=== PATIENT | female | born 1975 | race Caucasian/White ===

== ENCOUNTER 2017-06-21 18:35 | Observation (INO) ==
[2017-06-21 18:57] LABS: Basophils % 0.4 % (0.1-2.0); Eosinophils # 0.3 K/mm3 (0.0-0.4); Eosinophils % 2.7 % (0.1-12.0); Hematocrit 43.2 % (37.0-47.0); Hemoglobin 13.6 g/dL (12.2-16.2); Lymphocytes # 3.5 K/mm3 (0.7-4.5); Lymphocytes % 37.1 K/mm3 (10-50); Mean Corpuscular HGB Conc 31.5 g/dL (31.8-35.4); Mean Corpuscular Hemoglobin 29.1 pg (27.0-31.2); Mean Corpuscular Volume 92.5 fl (81-99); Mean Platelet Volume 8.1 fl (7.4-10.4); Monocytes # 0.3 K/mm3 (0.1-1.0); Monocytes % 3.6 % (1.7-9.3); Neutrophils # 5.2 K/mm3 (1.8-7.8); Neutrophils % 56.2 % (37.0-80.0); Platelet Count 348 K/mm3 (142-424); Red Blood Count 4.67 M/mm3 (4.20-5.40); Red Cell Distribution Width 13.3 % (11.5-17.5); White Blood Count 9.3 K/mm3 (4.8-10.8)
[2017-06-21 19:26] LABS: Alanine Aminotransferase 16 U/L (12-78); Albumin Level 3.2 gm/dL (3.4-5.0); Albumin/Globulin Ratio 0.8 (1.1-1.8); Alkaline Phosphatase 74 U/L (46-116); Anion Gap 13.7 mEq/L (5-15); Aspartate Amino Transferase 16 U/L (15-37); Bilirubin,Total 0.1 mg/dL (0.2-1.0); Blood Urea Nitrogen 11 mg/dL (7-18); Calcium 8.5 mg/dL (8.5-10.1); Carbon Dioxide 26 mmol/L (21.0-32.0); Chloride 107 mmol/L (98-107); Creatine Kinase 67 U/L (26-192); Globulin 4.1 gm/dl (1.3-3.2); Glucose 87 mg/dL (74-106); Potassium 3.7 mmoL/L (3.5-5.1); Sodium 143 mmol/L (136-145); Total Protein,Serum 7.3 gm/dL (6.4-8.2)
--- NOTE | 2017-06-21 20:20 | Emergency Department Note ---
ED Disposition Clinical Impression: Chest pain Qualifiers: Chest pain type: precordial pain Qualified Code(s): R07.2 - Precordial pain Disposition: Admitted as Observation Condition on Discharge: Good Referrals: Dung Huntley MD [Primary Care Provider] - - Critical Care Critical Care Time: No Attestation: On 06/21/17, the high probability of a clinically significant, sudden or life threatening deterioration of the following system(s) required my full and direct attention, intervention and personal management. The time I documented below is in addition to time spent performing reported procedures but includes the following listed in this critical care notation. Medical Decision Making - Medical Records Medical records reviewed: Yes: I reviewed the patient's medical records. - Alcieds Inquiry Pt receiving controlled substance: No Vital Signs: 06/21/17 18:36 06/21/17 20:55 Temperature 98.8 F Temperature Source Oral Pulse Rate [Right Radial] 87 65 Respiratory Rate 20 14 Blood Pressure [Right Arm] 159/89 129/106 Blood Pressure Mean [Right Arm] 112 113 Blood Pressure Source [Right Arm] Automatic Cuff Automatic Cuff Blood Pressure Position [Right Arm] Supine Sitting 02 Sat by Pulse Oximetry 100 100 Oxygen Delivery Method Room Air Room Air - Lab Data Lab results reviewed: Yes: I reviewed the patient's lab results. Lab Results 06/21/17 18:49: WBC 9.3, RBC 4.67, Hgb 13.6, Hct 43.2, MCV 92.5, MCH 29.1, MCHC 31.5 L, RDW 13.3, Plt Count 348, MPV 8.1, Neut % (Auto) 56.2, Lymph % (Auto) 37.1, [place] % (Auto) 3.6, Eos % (Auto) 2.7, Baso % (Auto) 0.4, Neut # (Auto) 5.2 , Lymph # (Auto) 3.5, [place] # (Auto) 0.3, Eos # (Auto) 0.3, Baso # (Auto) 0.0 06/21/17 18:49: Sodium 143, Potassium 3.7, Chloride 107, Carbon Dioxide 26, Anion Gap 13.7, BUN 11, Creatinine 0.63, Estimated Creat Clear 212, Estimated GFR 105, Est GFR ( Amer) 127, Glucose 87, Calcium 8.5, Total Bilirubin 0.1 L, AST 16, ALT 16, Alkaline Phosphatase 74, Total Creatine Kinase 67, CK-MB (CK-2) < 0.5, CK-MB (CK-2) Rel Index 0.7, Troponin I < 0.02, Total Protein 7.3, Albumin 3.2 L, Globulin 4.1 H, Albumin/Globulin Ratio 0.8 L 06/21/17 18:49: D-Dimer 323 06/21/17 18:49: Triglycerides 195, Cholesterol 191, LDL Cholesterol 112, VLDL Cholesterol 39, HDL Cholesterol 40, Cholesterol/HDL Ratio 4.8 H Result diagrams: 06/21/17 18:49 06/21/17 18:49 Orders (Tests/Meds): ED MEDICATIONS Discontinued Medications Generic Name Dose Route Start Last Admin Trade Name Freq PRN Reason Stop Dose Admin Aspirin 324 mg 06/21/17 18:46 06/21/17 18:48 Aspirin 81mg Chewable Tablet PO 06/21/17 18:47 324 mg ONCE ONE Administration Nitroglycerin 1 gm 06/21/17 20:22 06/21/17 20:53 Nitroglycerin 1 Inch Oint Udp TD 06/21/17 20:23 1 gm ONCE ONE Administration ORDERS Category Date Time Status XR chest 2V Stat Exams 06/21/17 18:44 Taken 12-lead EKG Request [ECG Request by /Dayne] Stat Y 06/21/17 18:45 Ordered - Radiology Data #1 Image(s): Clavicle Image Reviewed: Yes I reviewed the patient's radiology image Preliminary Findings: Normal/NAD - ECG Data Tracing #1 I reviewed this ECG and interpreted as documented below: Normal Sinus Rhythm: Yes Ischemic changes: non-specific ST-T wave changes Chest Pain HPI - General Chief Complaint: Chest Pain Stated Complaint: chest pain Time Seen by Provider: 06/21/17 20:00 Mode of Arrival: Ambulatory Limitations: No Limitations Description of Symptoms (Recalled from ER Triage Doc. by RN): Pt reports chest pain since 1700. States she had mild arm pain once at work today that went away. reports she was driving home from work today and developed chest pressure/ tightening. reports nausea. - History of Present Illness HPI narrative: new onset of ant chest pain with rad to lt upper ext over the day - no known ht disease MD complaint: chest pain indicative of cardiac Onset (ago): hour(s) Duration: now resolved Activity at onset: during rest Pain location: substernal Severity: moderate Quality: heaviness Pain radiation: LUE Relieving factors: nothing Associated symptoms: dyspnea Risk Factors for CAD: Family Hx of CAD, Smoking Treatments prior to or on arrival for Cardiac Chest Pain: none - ANASTASIA Score Non-Stemi Age of patient: Less than 65 yrs Number of risk factors for CAD: Presence of 3 or more Prior coronary artery stenosis(seen in coronary angiography): Less than 50% ST-Segment deviation on ECG (more than 1 min): Absent Prior aspirin intake: No ASA in the last 7 days Severe anginal chest pain: Two or more episodes in last 24 hours Elevated cardiac markers(CK-MB or troponin): Absent Non-Stemi Risk Score: 2 - Related Data Home Medications Medication Instructions Recorded Confirmed Buspirone HCl [Buspar 10mg tablet] 10 mg PO DAILY 06/21/17 06/21/17 Citalopram Hydrobromide [Celexa 40 mg PO DAILY 06/21/17 06/21/17 40mg Tablet] Allergies Allergy/AdvReac Type Severity Reaction Status Date / Time penicillin G [PENICILLIN G] Allergy Mild Verified 06/21/17 18:44 [facility] History I have reviewed the patient's past medical history: Yes Medical History: Denies:: Cancer, Diabetes Mellitus Type 1, Diabetes Mellitus Type 2, MRSA Other Surgeries: Yes: , Other (gall bladder, gastric bypass, uterine ablation) Amputation: No Fractures: No - Social History Smoking Status: Current every day smoker Tobacco Type: cigarettes # Packs/Day (cigarettes): 1 Alcohol Intake: never - Psychiatric History Expresses thoughts of harming self/others: None Suicide Plan Description: No Plan ROS Obtained: Yes All systems reviewed & no additional complaints - Constitutional Constitutional: Denies fever(s) - Eyes Eyes: Denies change in vision - ENT Ears, Nose, Mouth, and Throat: Denies sore throat - Cardiovascular Cardiovascular: Reports chest pain, Reports dyspnea - Respiratory Respiratory: No cough - Gastrointestinal Gastrointestingal: Denies: abdominal pain - Genitourinary Female Genitourinary: Denies flank pain, Denies hematuria - Musculoskeletal Musculoskeletal: Denies joint pain - Integumentary/Breasts Skin/Breast: Denies rash - Neurologic Neurologic: Denies seizure-like activity Physical Exam - General General appearance: in no apparent distress - Head Head exam: normocephalic - Eye Eye exam: Present: PERRL, EOMI - ENT ENT exam: Present: mucous membranes dry - Neck Neck exam: Present: trachea midline - Respiratory Respiratory exam: Present: normal lung sounds bilaterally. Absent: respiratory distress - Cardiovascular Cardiovascular exam: Present: regular rate, systolic murmur. Absent: gallop - Abdominal Exam Abdominal exam: Present: soft - Neurological Exam Neurological exam: Present: alert, oriented X3, CN II-XII intact - Skin Skin exam: Absent: rash
[2017-06-21 20:36] LABS: Chol/HDL Ratio 4.8 (1-3.5)
[2017-06-22 06:56] LABS: Anion Gap 10.1 mEq/L (5-15); Potassium 4.1 mmoL/L (3.5-5.1)
[2017-06-22 07:14] LABS: Basophils % 0.4 % (0.1-2.0); Eosinophils # 0.2 K/mm3 (0.0-0.4); Eosinophils % 2.3 % (0.1-12.0); Lymphocytes # 2.8 K/mm3 (0.7-4.5); Lymphocytes % 42.1 K/mm3 (10-50); Mean Corpuscular HGB Conc 31.5 g/dL (31.8-35.4); Mean Corpuscular Hemoglobin 29.3 pg (27.0-31.2); Mean Corpuscular Volume 93.2 fl (81-99); Mean Platelet Volume 8.1 fl (7.4-10.4); Monocytes # 0.3 K/mm3 (0.1-1.0); Monocytes % 3.8 % (1.7-9.3); Neutrophils # 3.4 K/mm3 (1.8-7.8); Neutrophils % 51.4 % (37.0-80.0); Platelet Count 270 K/mm3 (142-424); Red Blood Count 3.96 M/mm3 (4.20-5.40); Red Cell Distribution Width 13.3 % (11.5-17.5); White Blood Count 6.6 K/mm3 (4.8-10.8)
[2017-06-22 07:27] LABS: Hematocrit 37.4 % (37.0-47.0); Hemoglobin 11.7 g/dL (12.2-16.2)
--- NOTE | 2017-06-22 07:53 | History & Physical Report ---
*Admission Date: 06/21/17 *Chief complaint: Chest pain *History of present illness: 41-year-old white female, with several risk factors for heart disease, including family history of hypertension, significant hyperlipidemia, morbid obesity and heavy cigarette use, who came to the emergency department with pressure-like pain with some sharp elements radiating down her left arm. This was associated with some dyspnea but no diaphoresis. In the emergency department EKG was unremarkable and initial troponin was negative but because of her risk factor she was admitted overnight for observation. This morning she complains of no chest pain but has a headache, that she assumes is from the nitroglycerin patch. [facility] History I have reviewed the patient's past medical history: Yes Medical History: Denies:: Cancer, Diabetes Mellitus Type 1, Diabetes Mellitus Type 2, MRSA Other Surgeries: Yes: , Other (gall bladder, gastric bypass, uterine ablation) Amputation: No Fractures: No - *Social History Educational Level: Completed High School Smoking Status: Current every day smoker Tobacco Type: cigarettes # Packs/Day (cigarettes): 1 Alcohol Intake: never Occupational Status: employed - Psychiatric History Expresses thoughts of harming self/others: None Suicide Plan Description: No Plan Review of Systems - Review of Systems Review of systems:: unable to obtain, other, pertinent systems reviewed and negative unless documented below - *Neurologic Denies seizure-like activity Meds Home Medications Medication Instructions Recorded Confirmed Type Buspirone HCl [Buspar 10mg tablet] 10 mg PO DAILY 06/21/17 06/21/17 History Citalopram Hydrobromide [Celexa 40 mg PO DAILY 06/21/17 06/21/17 History 40mg Tablet] Allergies Allergy/AdvReac Type Severity Reaction Status Date / Time penicillin G [PENICILLIN G] Allergy Mild Verified 06/21/17 18:44 Exam Vital signs and Labs for Last 24 Hours: Temp Pulse Resp BP Pulse Ox 98.4 F 68 18 127/76 95 06/22/17 07:24 06/22/17 07:24 06/22/17 07:24 06/22/17 07:24 06/22/17 07:24 Laboratory Results - last 24 hr 06/22/17 06:25: Troponin I < 0.02 06/22/17 06:25: WBC 6.6 D, RBC 3.96 L, Hgb 11.7 L D, Hct 37.4, MCV 93.2, MCH 29.3, MCHC 31.5 L, RDW 13.3, Plt Count 270, MPV 8.1, Neut % (Auto) 51.4, Lymph % (Auto) 42.1, [place] % (Auto) 3.8, Eos % (Auto) 2.3, Baso % (Auto) 0.4, Neut # ( Auto) 3.4, Lymph # (Auto) 2.8, [place] # (Auto) 0.3, Eos # (Auto) 0.2, Baso # (Auto ) 0.0 06/22/17 06:25: Sodium 146 H, Potassium 4.1, Chloride 112 H, Carbon Dioxide 28, Anion Gap 10.1, BUN 10, Creatinine 0.57, Estimated Creat Clear 113, Estimated GFR 117, Est GFR ( Amer) 142, Glucose 94, Magnesium 1.9 I & O for Last 24 hours: Intake & Output 06/19/17 06/20/17 06/21/17 06/22/17 11:59 11:59 11:59 11:59 Output Total 150 / 150 Balance -150 / -150 Narrative: Patient is alert, oriented, her morbid obesity limits her examination accuracy and complicates all aspects of her care. Heart rate is regular. Abdomen is soft, lungs are well-expanded and clear, she is oriented 3, normal cranial nerves. H&P: Result - Labs Labs: Short CBC 06/22/17 Range/Units 06:25 WBC 6.6 D (4.8-10.8) K/mm3 Hgb 11.7 L D (12.2-16.2) g/dL Hct 37.4 (37.0-47.0) % Plt Count 270 (142-424) K/mm3 BMP 06/22/17 06:25 Sodium 146 H Potassium 4.1 Chloride 112 H Carbon Dioxide 28 BUN 10 Creatinine 0.57 Glucose 94 Cardiac Enzymes 06/22/17 Range/Units 06:25 Troponin I < 0.02 (0.00-0.06) ng/ml Assessment and Plan (1) Tobacco abuse Current visit: Yes Status: Acute Category: Medical Code(s): Z72.0 - Tobacco use (2) BMI greater than 40 Current visit: Yes Status: Acute Category: Medical (3) Chest pain Current visit: Yes Status: Acute Qualifiers: Chest pain type: precordial pain Qualified Code(s): R07.2 - Precordial pain Category: Medical Code(s): R07.9 - Chest pain, unspecified Agree with rule out [place] admission. Enzymes are negative. Cardiology consultation. Patient certainly needs risk stratification. I discussed with her family history. Both of her parents have had heart catheterizations but these were "normal." She herself has never had catheterization or stress testing.
--- NOTE | 2017-06-22 08:16 | Pharmacy Consult Notes ---
[facility] Pharmacy VTE Monitoring - Patient Demographics Admission date: 06/21/17 Report Date: 06/22/17 Time: 08:16 Allergies/Adverse Reactions: Patient Allergies penicillin G [PENICILLIN G] Allergy (Mild, Verified 06/21/17 18:44) Height: 1.63 m Weight: 122.47 kg Patient Problems: Current Active Problems Chest pain (Acute) Tobacco abuse (Acute) BMI greater than 40 (Acute) - VTE Risk Labs: VTE Related Lab Results Hgb 11.7 g/dL (12.2-16.2) L D 06/22/17 06:25 Hct 37.4 % (37.0-47.0) 06/22/17 06:25 Plt Count 270 K/mm3 (142-424) 06/22/17 06:25 BUN 10 mg/dL (7-18) 06/22/17 06:25 Creatinine 0.57 mg/dL (0.55-1.02) 06/22/17 06:25 Estimated Creat Clear 113 mL/min (0-300) 06/22/17 06:25 Was VTE Risk Assessment Performed: No VTE Score: 2 VTE Risk Level: Very Low Risk Clinical Trial Participant: No - Prophylaxis VTE Prophylaxis Ordered?: Yes Types of VTE Prophylaxis: TEDS Knee High
--- NOTE | 2017-06-22 09:56 | Consult Report ---
History of Present Illness Consult date: 06/22/17 Requesting physician: Dung Huntley Consult reason: chest pain Chief complaint: chest pain Additional Medical History:: 1. History of gastric bypass surgery in 2009 with resultant of 150 pound weight loss since then 2. Tobacco use, 1 pack per day for 3 years with history of remote tobacco use as well. History of present illness: 41-year-old white female with history of tobacco use and gastric bypass surgery in 2009 resulting in 150 pound weight loss presented to the emergency department yesterday due to onset of chest discomfort with radiation to the back. Patient also relates left arm discomfort and tingling. Symptoms onset about 5:00 as she was leaving work. She does relate a very stressful day at work and a history of gastric ulcer at the anastomosis site of her previous gastric bypass surgery for which she has been on therapy for a year. Patient states she did get relief of symptoms after nitroglycerin paste was applied in the emergency department. EKG shows no acute ST segment changes. Troponins have returned normal. Preliminary echocardiogram shows normal left ventricular function. Cardiology consulted for evaluation. Patient denies diabetes, hypertension or hyperlipidemia or significant family history of coronary artery disease. [facility] History Medical History: Denies:: Cancer, Diabetes Mellitus Type 1, Diabetes Mellitus Type 2, MRSA Other Surgeries: Yes: , Other (gall bladder, gastric bypass, uterine ablation) Amputation: No Fractures: No - *Social History Educational Level: Completed High School Smoking Status: Current every day smoker Tobacco Type: cigarettes # Packs/Day (cigarettes): 1 Alcohol Intake: never Occupational Status: employed - Psychiatric History Expresses thoughts of harming self/others: None Suicide Plan Description: No Plan Meds Home Medications Medication Instructions Recorded Confirmed Type Buspirone HCl [Buspar 10mg tablet] 10 mg PO BID 06/21/17 06/22/17 History Duloxetine HCl 60 mg PO DAILY 06/22/17 06/22/17 History Allergies Allergy/AdvReac Type Severity Reaction Status Date / Time penicillin G [PENICILLIN G] Allergy Mild Verified 06/21/17 18:44 Review of Systems - *Cardiovascular Reports chest pain - *Respiratory Reports shortness of breath with activity - *Gastrointestinal Denies abdominal pain - *Neurologic Denies seizure-like activity Exam Vital signs and Labs for Last 24 Hours: Temp Pulse Resp BP Pulse Ox 98.4 F 60 18 127/76 95 06/22/17 07:24 06/22/17 08:00 06/22/17 07:24 06/22/17 07:24 06/22/17 07:24 Laboratory Results - last 24 hr 06/22/17 06:25: Troponin I < 0.02 06/22/17 06:25: WBC 6.6 D, RBC 3.96 L, Hgb 11.7 L D, Hct 37.4, MCV 93.2, MCH 29.3, MCHC 31.5 L, RDW 13.3, Plt Count 270, MPV 8.1, Neut % (Auto) 51.4, Lymph % (Auto) 42.1, [place] % (Auto) 3.8, Eos % (Auto) 2.3, Baso % (Auto) 0.4, Neut # ( Auto) 3.4, Lymph # (Auto) 2.8, [place] # (Auto) 0.3, Eos # (Auto) 0.2, Baso # (Auto ) 0.0 06/22/17 06:25: Sodium 146 H, Potassium 4.1, Chloride 112 H, Carbon Dioxide 28, Anion Gap 10.1, BUN 10, Creatinine 0.57, Estimated Creat Clear 113, Estimated GFR 117, Est GFR ( Amer) 142, Glucose 94, Magnesium 1.9 I & O for Last 24 hours: Intake & Output 06/19/17 06/20/17 06/21/17 06/22/17 11:59 11:59 11:59 11:59 Output Total 150 / 150 Balance -150 / -150 Weight 270 lb - *Routine Neck Exam Absent: JVD, carotid bruit - *Routine Respiratory Exam Present: CTA bilaterally - *Routine Cardiovascular Exam Present: RRR. Absent: murmur, gallop - *Routine Extremities Exam Absent: edema - *Routine Neurological Exam Present: alert, oriented X3, moving all extremities Assessment and Plan (1) Chest pain Current visit: Yes Status: Acute Qualifiers: Chest pain type: precordial pain Qualified Code(s): R07.2 - Precordial pain Category: Medical Code(s): R07.9 - Chest pain, unspecified (2) Tobacco abuse Current visit: Yes Status: Acute Category: Medical Code(s): Z72.0 - Tobacco use (3) BMI greater than 40 Current visit: Yes Status: Acute Category: Medical - Assessment and plan all Dx Assessment and Plan for all problems:: 1. Chest pain with normal troponins, no EKG evidence of acute coronary syndrome and normal echocardiogram with ANASTASIA score of 1. Recommend Lexiscan or exercise stress test with Myoview images today. I did offer cardiac catheterization the patient wishes to start with a noninvasive approach at this time. Further recommendations to follow.
--- NOTE | 2017-06-23 12:57 | Discharge Summary ---
General - General Admission date: 06/21/17 Discharge date: 06/23/17 HPI HPI: 41-year-old white female, with several risk factors for heart disease, including family history of hypertension, significant hyperlipidemia, morbid obesity and heavy cigarette use, who came to the emergency department with pressure-like pain with some sharp elements radiating down her left arm. This was associated with some dyspnea but no diaphoresis. In the emergency department EKG was unremarkable and initial troponin was negative but because of her risk factor she was admitted overnight for observation. This morning she complains of no chest pain but has a headache, that she assumes is from the nitroglycerin patch. Hospital Course Hospital Course: Patient was admitted for observation. Serial enzymes were obtained and found to be normal. Myoview GXT revealed reversible ischemia in the area of the apex , EF 63%. Cardiology was consulted and patient agreed to coronary angiogram. Patient had LHC which was unremarkable, report still pending. She feels well with no further chest pain and is ready for discharge home. Discharge home. FU with Erma Serrano APRN in [address] Wasserman in 1-2 weeks. Objective Vital signs: Temp Pulse Resp BP Pulse Ox 97.6 F 73 18 134/74 100 06/23/17 08:57 06/23/17 12:00 06/23/17 12:00 06/23/17 12:00 06/23/17 12:00 Narrative: ALert and oriented x3. Rate and rhythm regular. No murmur. No LE edema. Lung sounds clear and equal. Right radial cath site unremarkable with compression device in place. DS: Diagnosis - Discharge Diagnosis (1) BMI greater than 40 Status: Acute (2) Chest pain Status: Acute (3) Tobacco abuse Status: Acute Discharge Plan - Patient Discharge Instructions ACTIVITY: Continue current activity DIET: low fat, low cholesterol - Follow up Plan Follow up with: Erma Serrano APRN [Nurse Practitioner] - 1 week Unknown provider or service follow up:: FU with Dr. Wasserman in 1-2 weeks Disposition: Home, Self-Long-Term Medications: Home Medications Medication Instructions Recorded Confirmed Type Buspirone HCl [Buspar 10mg tablet] 10 mg PO BID 06/21/17 06/22/17 History Duloxetine HCl 60 mg PO DAILY 06/22/17 06/22/17 History Prescriptions/Medication Reconciliation: Continue Buspirone HCl [Buspar 10mg tablet] 10 mg PO BID Duloxetine HCl 60 mg PO DAILY
[2017-06-23 13:32] VITALS: BP 143/78
--- NOTE | 2017-06-23 16:50 | Cardiology Report ---
PROCEDURE: 2-D M-mode and color Doppler study INDICATIONS FOR THE TEST: Chest pain + COPD Heart Murmur Tobacco Smoking+ Palpitations Fatigue Syncope Edema Hypertension Diabetes Mellitus Rheumatic Fever SOB CHAN Obesity Hyperlipidemia Family History HD Additional History PATIENT INFORMATION HEIGHT:66 WEIGHT:250 GENDER: Female B/P:159/89 2-D/M-MODE INTERPRETATION: 2-D MEASUREMENTS OBSERVED VALUES IN CMS Right Ventricular Dimension (RVDd) 2.2 Interventricular Septum (Thickness)(IVsd) 1.5 Left Ventricular Internal Dimensions(LVIDd) 4.4 Left Ventricular Posterior Wall (Thickness)(LVPWd) 1.1 Aortic Root 3.2 Aortic Cusp Separation 2.3 Left Atrial Dimensions (LAD) 4.1 2D 1. Left atrium is mildly enlarged, left ventricle is normal size, there is mild concentric left ventricular hypertrophy, visually estimated ejection fraction 55% with no obvious regional wall motion abnormality. 2. The right atrium and right ventricle are normal size and contractility. 3. The aortic valve is minimally thickened and fibrosed. 4. The mitral and tricuspid valvular grossly normal. 5. The pulmonic valve is poorly visualized. 6. No significant pericardial effusion noted. DOPPLER INTERROGATION: Doppler interrogation of the aortic, mitral and tricuspid valve reveals presence of mild mitral and tricuspid regurgitation, tricuspid and jet velocity insufficient for calculation of the right ventricular systolic pressure, diastolic parameters are inconclusive. CONCLUSION: 1. Mildly enlarged left atrium, normal left ventricular size, mild concentric left ventricular hypertrophy, visually estimated ejection fraction 55% with no obvious regional wall motion abnormality, diastolic parameters are inconclusive. 2. Mild mitral and tricuspid regurgitation 3. No significant pericardial effusion noted.
== END 2017-06-23 13:53 | disposition home or self-care (01) ==
LOC: 2ND 18:35 → ER 18:35 → 2ND 22:00
PROVIDERS: ADMIT Emergency Medicine; ATTEND Internal Medicine Adolescent Medicine

== ENCOUNTER → 2017-11-21 17:13 | Outpatient (CLI) | payer OTHER, SELFPAY ==
[2017-11-21 17:38] LABS: Basophils # 0.1 K/mm3 (0-0.2); Basophils % 0.6 % (0.1-2.0); Eosinophils # 0.2 K/mm3 (0.0-0.4); Hematocrit 41.3 % (37.0-47.0); Hemoglobin 13.4 g/dL (12.2-16.2); Lymphocytes # 3.2 K/mm3 (0.7-4.5); Lymphocytes % 33.8 K/mm3 (10-50); Mean Corpuscular HGB Conc 32.4 g/dL (31.8-35.4); Mean Corpuscular Volume 89.5 fl (81-99); Mean Platelet Volume 7.8 fl (7.4-10.4); Monocytes # 0.3 K/mm3 (0.1-1.0); Monocytes % 2.8 % (1.7-9.3); Neutrophils # 5.8 K/mm3 (1.8-7.8); Neutrophils % 60.8 % (37.0-80.0); Platelet Count 351 K/mm3 (142-424); Red Blood Count 4.62 M/mm3 (4.20-5.40); Red Cell Distribution Width 15.1 % (11.5-17.5); White Blood Count 9.6 K/mm3 (4.8-10.8)
[2017-11-21 18:34] LABS: Alanine Aminotransferase 24 U/L (12-78); Albumin Level 3.6 gm/dL (3.4-5.0); Alkaline Phosphatase 55 U/L (46-116); Anion Gap 12.2 mEq/L (5-15); Aspartate Amino Transferase 14 U/L (15-37); Bilirubin,Total 0.2 mg/dL (0.2-1.0); Blood Urea Nitrogen 9 mg/dL (7-18); Carbon Dioxide 29 mmol/L (21.0-32.0); Chloride 106 mmol/L (98-107); Creatinine,Serum 0.61 mg/dL (0.55-1.02); Estimated Glomerular Filt Rate 109 ml/min (>60); Ferritin 27 ng/mL (8-388); GFR (African American) 131 ML/MIN (>60); Globulin 3.6 gm/dl (1.3-3.2); Glucose 81 mg/dL (74-106); Potassium 4.2 mmoL/L (3.5-5.1); Sodium 143 mmol/L (136-145); Thyroid Stimulating Hormone 1.29 uIU/ml (0.358-3.740); Total Protein,Serum 7.2 gm/dL (6.4-8.2)
[2017-11-21 18:44] LABS: Hemoglobin A1C 5.5 % (0.0-7.0)
[2017-11-23 12:41] LABS: Vitamin B12 629 pg/mL (232-1245); Vitamin D 25 Hydroxy 23.3 ng/mL (30.0-100.0)
== END ==
LOC: LAB 17:13
PROVIDERS: PCP Internal Medicine Adolescent Medicine; Visit Provider Nurse Practitioner Family
DX: E88.81 Metabolic syndrome and other insulin resistance (principal); R60.9 Edema, unspecified; Z98.84 Bariatric surgery status
CPT/HCPCS: 36415; 80053; 82607; 82652; 82728; 83036; 84443; 85025

== ENCOUNTER → 2018-08-22 09:57 | Outpatient (POV) | payer OTHER, SELFPAY | PROVIDERS: Visit Provider Dermatology | DX: Z00.00 Encounter for general adult medical examination without abnormal findings (principal) ==

== ENCOUNTER → 2018-10-10 07:55 | Outpatient (CLI) | payer OTHER, SELFPAY ==
[2018-10-10 08:38] LABS: Basophils % 0.6 % (0.1-2.0); Eosinophils # 0.1 K/mm3 (0.0-0.4); Hematocrit 38.8 % (37.0-47.0); Hemoglobin 12.2 g/dL (12.2-16.2); Lymphocytes # 2.4 K/mm3 (0.7-4.5); Lymphocytes % 34.6 % (10-50); Mean Corpuscular HGB Conc 31.3 g/dL (31.8-35.4); Mean Corpuscular Hemoglobin 29.5 pg (27.0-31.2); Mean Corpuscular Volume 94.2 fl (81-99); Mean Platelet Volume 8.1 fl (7.4-10.4); Monocytes # 0.2 K/mm3 (0.1-1.0); Monocytes % 3.6 % (1.7-9.3); Neutrophils % 59.2 % (37.0-80.0); Platelet Count 312 K/mm3 (142-424); Red Blood Count 4.12 M/mm3 (4.20-5.40); Red Cell Distribution Width 12.9 % (11.5-17.5); White Blood Count 6.8 K/mm3 (4.8-10.8)
[2018-10-10 08:47] LABS: INR 0.96 (0.9-1.1)
[2018-10-10 09:35] LABS: Alanine Aminotransferase 23 U/L (12-78); Alkaline Phosphatase 58 U/L (46-116); Anion Gap 9.3 mEq/L (5-15); Aspartate Amino Transferase 9 U/L (15-37); Bilirubin,Total 0.4 mg/dL (0.2-1.0); Blood Urea Nitrogen 13 mg/dL (7-18); Calcium 9.1 mg/dL (8.5-10.1); Carbon Dioxide 32 mmol/L (21.0-32.0); Chloride 104 mmol/L (98-107); Estimated Glomerular Filt Rate 92 ml/min (>60); GFR (African American) 112 ML/MIN (>60); Glucose 82 mg/dL (74-106); Potassium 4.3 mmoL/L (3.5-5.1); Sodium 141 mmol/L (136-145)
== END ==
PROVIDERS: Visit Provider Plastic Surgery
DX: Z01.812 Encounter for preprocedural laboratory examination (principal)
CPT/HCPCS: 36415; 80053; 85025; 85610; 85730

== ENCOUNTER → 2019-04-27 08:58 | Outpatient (CLI) | payer OTHER, SELFPAY ==
[2019-04-27 09:27] LABS: Basophils % 0.5 % (0.1-2.0); Eosinophils # 0.1 K/mm3 (0.0-0.4); Eosinophils % 1.4 % (0.1-12.0); Hematocrit 38.1 % (37.0-47.0); Hemoglobin 11.9 g/dL (12.2-16.2); Lymphocytes # 2.2 K/mm3 (0.7-4.5); Lymphocytes % 24.4 % (10-50); Mean Corpuscular HGB Conc 31.3 g/dL (31.8-35.4); Mean Corpuscular Hemoglobin 27.8 pg (27.0-31.2); Mean Corpuscular Volume 88.7 fl (81-99); Mean Platelet Volume 8.3 fl (7.4-10.4); Monocytes # 0.3 K/mm3 (0.1-1.0); Monocytes % 3.5 % (1.7-9.3); Neutrophils # 6.2 K/mm3 (1.8-7.8); Neutrophils % 70.3 % (37.0-80.0); Platelet Count 351 K/mm3 (142-424); Red Cell Distribution Width 14.2 % (11.5-17.5); White Blood Count 8.8 K/mm3 (4.8-10.8)
[2019-04-27 12:22] LABS: Alanine Aminotransferase 20 U/L (9-52); Albumin Level 3.7 g/dL (3.4-5.0); Albumin/Globulin Ratio 1.1 (1.1-1.8); Alkaline Phosphatase 48 U/L (46-116); Anion Gap 11.8 mEq/L (5-15); Aspartate Amino Transferase 10 U/L (15-37); Bilirubin,Total 0.3 mg/dL (0.2-1.0); Blood Urea Nitrogen 14 mg/dL (7-18); Calcium 9.2 mg/dL (8.5-10.1); Carbon Dioxide 29 mmol/L (21.0-32.0); Chloride 107 mmol/L (98-107); Chol/HDL Ratio 2.6 (1-3.5); Cholesterol 161 mg/dL (140-200); Creatinine,Serum 0.79 mg/dL (0.55-1.02); Estimated Glomerular Filt Rate 80 ml/min (>60); Ferritin 6 ng/mL (8-388); GFR (African American) 97 ML/MIN (>60); Globulin 3.3 gm/dl (1.3-3.2); Glucose 81 mg/dL (74-106); HDL Cholesterol 63 mg/dL (29-89); LDL Cholesterol 84 mg/dL (0-130); Potassium 4.8 mmoL/L (3.5-5.1); Sodium 143 mmol/L (137-145); Thyroid Stimulating Hormone 0.86 uIU/ml (0.358-3.740); Triglycerides 68 mg/dL (30-200); VLDL Cholesterol 14 mg/dL (0-40)
[2019-04-28 19:12] LABS: Vitamin B12 736 pg/mL (232-1245); Vitamin D 25 Hydroxy 10.5 ng/mL (30.0-100.0)
== END ==
LOC: LAB 08:59
PROVIDERS: Visit Provider Nurse Practitioner Family
DX: I10 Essential (primary) hypertension (principal); F41.9 Anxiety disorder, unspecified; E55.9 Vitamin D deficiency, unspecified; Z98.84 Bariatric surgery status
CPT/HCPCS: 36415; 80053; 80061; 82607; 82652; 82728; 84443; 85025

== ENCOUNTER → 2019-10-31 10:37 | Outpatient (CLI) | payer OTHER, SELFPAY | PROVIDERS: PCP Internal Medicine Adolescent Medicine; Visit Provider Nurse Practitioner Family | DX: Z03.818 Encounter for observation for suspected exposure to other biological agents ruled out (principal) | CPT/HCPCS: U0003 ==

== ENCOUNTER → 2020-05-23 08:37 | Outpatient (CLI) | payer OTHER, SELFPAY ==
[2020-05-23 09:49] LABS: Basophils # 0.1 K/mm3 (0-0.2); Basophils % 0.8 % (0.1-2.0); Eosinophils # 0.1 K/mm3 (0.0-0.4); Eosinophils % 1.7 % (0.1-12.0); Hematocrit 39.7 % (37.0-47.0); Hemoglobin 12.6 g/dL (12.2-16.2); Lymphocytes # 2.9 K/mm3 (0.7-4.5); Lymphocytes % 34.5 % (10-50); Mean Corpuscular HGB Conc 31.7 g/dL (31.8-35.4); Mean Corpuscular Hemoglobin 27.8 pg (27.0-31.2); Mean Corpuscular Volume 87.7 fl (81-99); Mean Platelet Volume 8.1 fl (7.4-10.4); Monocytes # 0.3 K/mm3 (0.1-1.0); Monocytes % 3.9 % (1.7-9.3); Neutrophils # 4.9 K/mm3 (1.8-7.8); Neutrophils % 59.1 % (37.0-80.0); Platelet Count 414 K/mm3 (142-424); Red Blood Count 4.52 M/mm3 (4.20-5.40); Red Cell Distribution Width 14.8 % (11.5-17.5); White Blood Count 8.3 K/mm3 (4.8-10.8)
[2020-05-23 10:02] LABS: Chloride 104 mmol/L (98-107); Potassium 4.7 mmoL/L (3.5-5.1); Sodium 139 mmol/L (136-145)
[2020-05-23 10:04] LABS: Alanine Aminotransferase 17 U/L (12-78); Albumin Level 4.3 g/dl (3.5-5.0); Albumin/Globulin Ratio 1.3 (1.1-1.8); Alkaline Phosphatase 62 U/L (38-126); Aspartate Amino Transferase 26 U/L (14-36); Bilirubin,Total 0.5 mg/dl (0.2-1.3); Blood Urea Nitrogen 11 mg/dl (7-17); Estimated Glomerular Filt Rate 91 ml/min (>60); GFR (African American) 111 ML/MIN (>60); Globulin 3.2 g/dL (1.3-3.2); Total Protein,Serum 7.5 g/dl (6.3-8.2)
[2020-05-23 10:05] LABS: Anion Gap 11.7 mEq/L (5-15); Carbon Dioxide 28 mmol/L (22.0-30.0); Chol/HDL Ratio 2.8 (1-3.5); Cholesterol 181 mg/dl (140-200); Glucose 90 mg/dl (74-100); HDL Cholesterol 64 mg/dl (40-60); Triglycerides 94 mg/dl (30-150); VLDL Cholesterol 19 mg/dL (0-40)
[2020-05-23 10:24] LABS: 25-OH Vitamin D, Total 14.7 ng/mL (30-100)
[2020-05-23 10:39] LABS: Thyroid Stimulating Hormone 0.76 uIU/mL (0.465-4.68)
[2020-05-23 10:42] LABS: Ferritin 6.59 ng/ml (6.24-137)
[2020-05-23 11:51] LABS: Vitamin B12 805 pg/mL (239-931)
== END ==
PROVIDERS: Visit Provider Nurse Practitioner Family
DX: I10 Essential (primary) hypertension (principal); E55.9 Vitamin D deficiency, unspecified; F41.9 Anxiety disorder, unspecified; F33.0 Major depressive disorder, recurrent, mild; K27.9 Peptic ulcer, site unspecified, unspecified as acute or chronic, without hemorrhage or perforation; Z98.84 Bariatric surgery status
CPT/HCPCS: 36415; 80053; 80061; 82306; 82607; 82728; 84443; 85025

== ENCOUNTER → 2020-10-31 08:14 | Outpatient (CLI) | payer OTHER, SELFPAY ==
[2020-10-31 08:40] LABS: Adenovirus,PCR Not Detected (NotDetected); Bordetella Pertussis Not Detected (NotDetected); Chlamydophila Pneumoniae, PCR Not Detected (NotDetected); Coronavirus 19, PCR Not Detected (NotDetected); Coronavirus 229E Not Detected (NotDetected); Coronavirus NL63 Not Detected (NotDetected); Coronavirus OC43 Not Detected (NotDetected); Coronovirus HKU1,PCR Not Detected (NotDetected); Human Metapneumovirus Not Detected (NotDetected); Influenza A, PCR Not Detected (NotDetected); Influenza AH1, 2009 Not Detected (NotDetected); Influenza AH1, PCR Not Detected (NotDetected); Influenza AH3,PCR Not Detected (NotDetected); Influenza B, PCR Not Detected (NotDetected); Mycoplasma Pneumoniae, PCR Not Detected (NotDetected); Parainfluenza 1, PCR Not Detected (NotDetected); Parainfluenza 2, PCR Not Detected (NotDetected); Parainfluenza 3, PCR Not Detected (NotDetected); Parainfluenza 4, PCR Not Detected (NotDetected); Respiratory Syncytial Virus Not Detected (NotDetected); Rhinovirus/Enterovirus Not Detected (NotDetected)
== END ==
PROVIDERS: PCP Internal Medicine Adolescent Medicine; Referring Provider Nurse Practitioner Family; Visit Provider Internal Medicine Adolescent Medicine
DX: Z20.822 Contact with and (suspected) exposure to COVID-19 (principal)
CPT/HCPCS: 87581; 87633; 87798

== ENCOUNTER → 2020-11-01 11:36 | Outpatient (CLI) | payer OTHER, SELFPAY | PROVIDERS: PCP Internal Medicine Adolescent Medicine; Visit Provider Nurse Practitioner Family | DX: Z20.822 Contact with and (suspected) exposure to COVID-19 (principal) | CPT/HCPCS: U0003 ==

== ENCOUNTER → 2021-02-10 21:32 | Outpatient (CLI) | payer BC, SELFPAY ==
[2021-02-10 21:51] LABS: Influenza A, PCR Not Detected (NotDetected); Influenza B, PCR Not Detected (NotDetected)
[2021-02-10 22:17] LABS: Strep Scrn Group A (Rapid) Negative (Negative)
[2021-02-10 23:07] LABS: Coronavirus 19, PCR Detected (NotDetected)
--- NOTE | 2021-02-11 12:41 | PC.NURSE ---
notified pt of positive covid result at this time
== END ==
PROVIDERS: PCP Internal Medicine Adolescent Medicine; Visit Provider Emergency Medicine
DX: U07.1 COVID-19 (principal); R50.9 Fever, unspecified; R05.9 Cough, unspecified; J02.9 Acute pharyngitis, unspecified
CPT/HCPCS: 87430; C9803; U0003; U0005

== ENCOUNTER → 2021-12-16 15:26 | Outpatient (CLI) | payer BC, SELFPAY ==
--- NOTE | 2021-12-16 15:34 | US_ITS ---
FINAL REPORT CLINICAL HISTORY: IRR CYCLE FINDINGS: Transvaginal sonographic images of the pelvis were obtained. The uterus measures 8.6 x 5.5 x 4.5 cm. The endometrium measures 4 mm, which is within normal limits. No uterine mass is identified. The right ovary measures 2.8 cm in length and left ovary measures 3.1 cm in length. Normal blood flow seen to the ovaries. There is a 2.6 cm simple cyst in the left ovary. There is no evidence of free fluid. IMPRESSION: Left ovarian cyst. Otherwise unremarkable exam. Reviewed, Interpreted and Dictated by Shorty Chaudhry III, MD Transcribed by Erlinda Gee Authenticated and [facility]
== END ==
LOC: RAD 15:26
PROVIDERS: PCP Internal Medicine Adolescent Medicine; Visit Provider Nurse Practitioner Family
DX: N92.0 Excessive and frequent menstruation with regular cycle (principal); N94.10 Unspecified dyspareunia
CPT/HCPCS: 76830

== ENCOUNTER 2022-03-04 11:26 | Day surgery (SDC) | payer BC, SELFPAY ==
[2022-01-25 13:54] VITALS: BMI 38.9
[2022-03-04] VITALS (8 sets, daily range): BP systolic 93–124; BP diastolic 57–63; PULSE 69–82; RESP 16–188; TEMP 36.3–36.7; O2SAT 95–100
[2022-03-04 11:59] LABS: Urine Pregnancy, HCG Qual. Negative (Negative)
--- NOTE | 2022-03-04 12:53 | P.PN_ITS ---
[facility] Disclaimer: The information contained in this section may have been updated after the patient was seen, as this information can be updated by other users. Medical History Edema HLD (hyperlipidemia) Leg cramps Leg pain Surgical History H/O: History of cholecystectomy History of endometrial ablation Hx of gastric bypass Family History Other Family history of COPD (chronic obstructive pulmonary disease) Family history of atrial fibrillation Family history of hypertension Social History Smoking Status: Former smoker alcohol intake: never substance use type: denies use current occupational status: employed Travel in the last 8 weeks: None adopted: No caregiver/support person: No foster care: No household members: family housing: house lives independently: Yes marital status: education level: high school service: No mcc: No current occupational exposures/hazards: No sexually active: Yes caffeine: Yes special sharon needs: No agree to transfusion: No do you feel safe at home: Yes victim of physical abuse: No victim of emotional abuse: No victim of sexual abuse: No would you like helpful sources: No [facility] Anesthesia Checklist Patient Identification Patient Identification: Arm Band Structural Data Admitted From: Home Planned Operative Procedure/s: EGD/Colonoscopy Consent for Planned Operative Procedure(s) Verified: Yes Verified Documents: Surgical Consent and History and Physical NPO Status Verified Time NPO: 00:00 Additional verifications Anesthesia Reactions: No Airway Assessment C-Spine Mobility Assessed: Yes TMJ Mobility Assessed: Yes Dentition: Good Dentition Neurological Assessment Level of Consciousness: Awake and Alert Anesthesia Plan Anesthesia Risk discussed: Yes Anesthesia Plan: Verified ASA Class: II Anesthesia Type: MAC
--- NOTE | 2022-03-04 13:01 | HMH.SCOPE ---
Procedure: Date: 03/04/22 Patient Date of :: 1975 Procedure Performed:: EGD Indications:: History of peptic ulcer disease Performing Provider:: Estefani Gordon MD Referring Provider:: Dung Huntley Sedation:: Propofol Procedure:: The gastroscope was gently passed through the incisoral orifice into the oral cavity and under direct visualization the esophagus was intubated. The endoscope was passed down the esophagus, through the stomach, and into the duodenum. Color, texture, mucosa, and anatomy of the esophagus, stomach, and duodenum were carefully examined with the scope. Findings:: Oropharynx: normal Esophagus: normal EG Junction: intact at 40 cm Cardia: normal Fundus: normal Body: normal, s/p partial gastrectomy anatomy, no evidence of ulcer disease Antrum: resected Duodenal bulb: resected Duodenum (second and third portion): normal Impression: S/P partial gastrectomy anatomy, no current evidence of ulcer disease Specimens:: None Recommendations:: Routine PRN f/u as clinically indicated Complications:: None Estimated blood obtained (mL): 0
--- NOTE | 2022-03-04 13:04 | HMH.SCOPE ---
Procedure: Date: 03/04/22 Patient Date of :: 1975 Procedure Performed:: Screening colonoscopy Indications:: Colon cancer screening, hx of constipation Performing Provider:: Estefani Gordon MD Referring Provider:: Dung Huntley Sedation:: Propofol Procedure:: After placing the patient in the left lateral decubitus position, the colonoscopy was gently inserted into the rectum and under direct visualization advanced to the cecum which was identified by transillumination in the right lower quadrant, identification of the ileocecal valve, appendiceal orifice, and cecal strap. Color, texture, mucosa, and anatomy of the colon were carefully examined with the scope. Findings:: Anal canal: normal Rectum: normal Sigmoid colon: normal without polyps or inflammatory changes Descending colon: normal without polyps or inflammatory changes Splenic flexure: normal Transverse colon: normal without polyps or inflammatory changes Hepatic flexure: normal Ascending colon: normal without polyps or inflammatory changes Cecum: normal Terminal ileum: not visualized Impression: Normal colonoscopy. No evidence of physical obstruction. Specimens:: None Recommendations:: Follow up exam in about TEN years or so, sooner if clinically indicated. Consider GI clinic evaluation for treatment of chronic constipation Complications:: None Estimated blood obtained (mL): 0
== END 2022-03-04 14:08 | disposition home or self-care (01) ==
PROVIDERS: PCP Internal Medicine Adolescent Medicine; Visit Provider Internal Medicine Gastroenterology
PROC: 0DJ08ZZ Inspection of Upper Intestinal Tract, Via Natural or Artificial Opening Endoscopic (ICD-10-PCS; CPT 43235; principal; 2022-03-04 12:30)
DX: Z12.11 Encounter for screening for malignant neoplasm of colon (principal); Z87.11 Personal history of peptic ulcer disease; Z79.899 Other long term (current) drug therapy
CPT/HCPCS: 45378; 43235; 81025

== ENCOUNTER 2022-12-09 10:23 | Emergency (ER) | payer BC, SELFPAY ==
[2022-12-09 10:25] VITALS: BP 117/73; PULSE 88; RESP 16; TEMP 36.7; O2SAT 99; BMI 38.6
--- NOTE | 2022-12-09 10:35 | PC.NURSE ---
Dr. Rios at [facility] for pt eval
--- NOTE | 2022-12-09 10:35 | PC.NURSE ---
Dr. Kumar at [facility] for pt eval
[2022-12-09 10:36] VITALS: PULSE 91; O2SAT 100
--- NOTE | 2022-12-09 10:38 | CT_ITS ---
FINAL REPORT TECHNIQUE: Multiple axial CT sections were performed from the foramen magnum to the vertex. Coronal and sagittal reformatted images were also obtained. Precontrast and postcontrast injection images were obtained. This study was performed with technique to keep radiation doses as low as reasonably achievable, (ALARA). Individualized dose reduction techniques using automated exposure control or adjustment of mA and/or kV according to the patient size were employed. CLINICAL HISTORY: R sided head/mastoid swelling/TTP/pain COMPARISON: None FINDINGS: The ventricles are normal in size. There is no evidence of hemorrhage. No masses are identified. No extra-axial fluid collection is seen. The sinuses are normal. No osseous abnormality is seen on the bone window images. Postcontrast images demonstrate no abnormal intracranial enhancement. There are mildly prominent posterior auricular and superior cervical nodes on the right side. The largest measures 17 mm in size. No associated loculated fluid collection is seen. Mastoid air cells are clear bilaterally. There is subcutaneous edema noted adjacent to the right skull base but no bony involvement is identified. IMPRESSION: Unremarkable intracranial CT of the head with and without contrast. Posterior auricular and superior cervical nodes on the right side measuring up to 17 mm in size, with adjacent subcutaneous edema. The mastoid air cells are clear bilaterally. No associated bony abnormality is identified. Reviewed, Interpreted and Dictated by Roxanne Sanchez MD Transcribed by Serena Iyer Authenticated and [facility]
--- NOTE | 2022-12-09 10:46 | HMH.EDGENADL ---
Discharge Plan Disposition Patient Disposition: Home, Self-Care Condition: Good Prescriptions Prescriptions: New cefdinir 300 mg capsule 300 mg PO BID 14 Days Qty: 28 0RF No Action omeprazole-sodium bicarbonate [Zegerid] 40-1.1 mg-gram capsule 1 cap PO DAILY buspirone 5 mg tablet 10 mg PO BID lisinopril-hydrochlorothiazide 10-12.5 mg tablet 10 tab PO BID bupropion HCl 300 mg tablet extended release 24 hr 300 mg PO DAILY Patient Comments: TAKE 1 TABLET BY MOUTH EVERY 24 HOURS bupropion HCl 150 mg tablet extended release 24 hr 150 mg PO DAILY Patient Comments: TAKE 1 TABLET BY MOUTH EVERY 24 HOURS Referrals Follow up/Referrals: Bryan Hoyt APRN [Primary Care Provider] - See instructions Activity Restrictions/Add. Instructions Additional Instructions/Restrictions: You were evaluated in the emergency department today. Please pickling operator your prescription at the pharmacy and take the full course as prescribed. Follow-up outpatient with your primary care provider over the next 2 to 3 days for reassessment. Return to the emergency department for any new or worsening symptoms. Clinical Impressions Clinical Impression: Acute right otitis media Instructions Patient Instructions: DI for Otitis Media (Middle Ear Infection)-Child, DI for Headache Discharge ED Provider: Sepideh Rios General Adult HPI General Chief complaint: Headache Stated complaint: headache pockets of fluid r side head Time Seen by Provider: 12/09/22 10:35 Mode of Arrival: Ambulatory Source of Information: Patient Limitations: No Limitations Description of Symptoms (Recalled from ER Triage Doc. by RN): Patient reports a headache that started yesterday and then today she began to have swelling behind her right ear and top of the right side of her head. Complaint of some mild dizziness as well. History of Present Illness HPI narrative: This patient is a 46-year-old female with a history of obesity, hyperlipidemia, and hypertension presenting to the emergency department for evaluation with concern for right-sided head and ear pain. She notes that she started feeling like she was having a tension headache yesterday, but it continued and worsened today. She also noted that she feels areas of swelling on the right side of her head behind her right ear. She states it feels like fluid collections. She denies experience anything like this in the past. She denies any recent fevers, sinus infections, vision changes, numbness, tingling, unilateral weakness, or other concerns. Related Data Home Medications Medication Instructions Recorded Confirmed omeprazole 40 mg-sodium 1 cap PO DAILY Reflux/Acid reflux 07/05/17 03/04/22 bicarbonate 1.1 gram capsule (Zegerid) bupropion HCl 150 mg 24 hr tablet, 150 mg PO DAILY Anxiety 03/04/22 03/04/22 extended release bupropion HCl 300 mg 24 hr tablet, 300 mg PO DAILY Anxiety 03/04/22 03/04/22 extended release buspirone 5 mg tablet 10 mg PO BID Anxiety 03/04/22 03/04/22 lisinopril 10 10 tab PO BID HTN 03/04/22 03/04/22 mg-hydrochlorothiazide 12.5 mg tablet Previous Rx's Medication Instructions Recorded cefdinir 300 mg capsule 300 mg PO BID 14 days #28 caps 12/09/22 Allergies Allergy/AdvReac Type Severity Reaction Status Date / Time penicillin G [PENICILLIN G] Allergy Mild Verified 06/21/17 18:44 [facility] Disclaimer: The information contained in this section may have been updated after the patient was seen, as this information can be updated by other users. Medical History Edema HLD (hyperlipidemia) Leg cramps Leg pain Surgical History H/O: History of cholecystectomy History of endometrial ablation Hx of gastric bypass Family History Other Family history
[2022-12-09 11:11] LABS: Alanine Aminotransferase 29 U/L (12-78); Albumin Level 3.9 g/dl (3.5-5.0); Albumin/Globulin Ratio 1.2 (1.1-1.8); Alkaline Phosphatase 45 U/L (38-126); Anion Gap 11.5 mEq/L (5-15); Aspartate Amino Transferase 30 U/L (14-36); Blood Urea Nitrogen 9 mg/dl (7-17); Calcium 8.9 mg/dl (8.4-10.2); Carbon Dioxide 27 mmol/L (22.0-30.0); Chloride 104 mmol/L (98-107); Creatinine Clearance Estimated 164 mL/min (50-200); Estimated Glomerular Filt Rate 90 ml/min (>60); GFR (African American) 109 ML/MIN (>60); Globulin 3.2 g/dL (1.3-3.2); Glucose 82 mg/dl (74-100); Potassium 3.5 mmoL/L (3.5-5.1); Sodium 139 mmol/L (136-145); Total Protein,Serum 7.1 g/dl (6.3-8.2)
[2022-12-09 11:14] LABS: Bilirubin,Total < 0.1 mg/dl (0.2-1.3)
[2022-12-09 11:16] LABS: Basophils % 0.9 % (0.1-2.0); Eosinophils # 0.1 K/mm3 (0.0-0.4); Eosinophils % 1.2 % (0.1-12.0); Hematocrit 35.8 % (37.0-47.0); Hemoglobin 11.1 g/dL (12.2-16.2); Lymphocytes # 1.7 K/mm3 (0.7-4.5); Lymphocytes % 33.1 % (10-50); Mean Corpuscular HGB Conc 30.9 g/dL (31.8-35.4); Mean Platelet Volume 8.4 fl (7.4-10.4); Monocytes # 0.4 K/mm3 (0.1-1.0); Monocytes % 7.3 % (1.7-9.3); Neutrophils # 2.9 K/mm3 (1.8-7.8); Neutrophils % 57.6 % (37.0-80.0); Platelet Count 326 K/mm3 (142-424); Red Blood Count 4.26 M/mm3 (4.20-5.40); Red Cell Distribution Width 16.5 % (11.5-17.5)
--- NOTE | 2022-12-09 11:58 | PC.NURSE ---
PT TO CT
--- NOTE | 2022-12-09 12:01 | PC.NURSE ---
Pt gone to RAD
--- NOTE | 2022-12-09 12:12 | PC.NURSE ---
PT RETURNED FROM CT
[2022-12-09 12:22] LABS: Erythrocyte Sedimentation Rate 41 mm/hr (0-20)
--- NOTE | 2022-12-09 12:39 | PC.NURSE ---
ROUNDED ON PT, UPDATED ON POC. WARM BLANKET PROVIDED. CALL LIGHT WITHIN REACH. NO NEEDS AT THIS TIME
--- NOTE | 2022-12-09 12:57 | PC.NURSE ---
Dr. Rios at BS to update mother on POC
[2022-12-09 13:01] VITALS: BP 103/65; PULSE 67; O2SAT 100
[2022-12-09 13:06] LABS: C-Reactive Protein < 0.2 mg/L (0-4)
[2022-12-09 13:30] VITALS: BP 116/72; PULSE 78; O2SAT 100
--- NOTE | 2022-12-09 13:31 | PC.NURSE ---
Rounded on pt. No needs or complaints voiced at this time.
[2022-12-09 14:10] VITALS: BP 129/60; PULSE 67; RESP 16; TEMP 36.7; O2SAT 100
== END 2022-12-09 14:11 | disposition home or self-care (01) ==
PROVIDERS: Emergency Provider Emergency Medicine; PCP Nurse Practitioner Family
DX: H66.91 Otitis media, unspecified, right ear (principal); R51.9 Headache, unspecified
CPT/HCPCS: 70470; 80053; 85025; 85651; 86140; 96361; 96374; 96375; 99285; J0131; Q9967

== ENCOUNTER 2022-12-11 16:41 | Emergency (ER) | payer BC, SELFPAY ==
[2022-12-11 16:51] VITALS: BP 131/70; PULSE 84; RESP 15; TEMP 36.7; O2SAT 99; BMI 39.4
--- NOTE | 2022-12-11 17:15 | HMH.EDGENADL ---
Discharge Plan Disposition Patient Disposition: Home, Self-Care Prescriptions Prescriptions: New sulfamethoxazole-trimethoprim [Bactrim DS] 800-160 mg tablet 1 tab PO BID 10 Days Qty: 20 0RF No Action omeprazole-sodium bicarbonate [Zegerid] 40-1.1 mg-gram capsule 1 cap PO DAILY buspirone 5 mg tablet 10 mg PO BID lisinopril-hydrochlorothiazide 10-12.5 mg tablet 10 tab PO BID bupropion HCl 300 mg tablet extended release 24 hr 300 mg PO DAILY Patient Comments: TAKE 1 TABLET BY MOUTH EVERY 24 HOURS bupropion HCl 150 mg tablet extended release 24 hr 150 mg PO DAILY Patient Comments: TAKE 1 TABLET BY MOUTH EVERY 24 HOURS cefdinir 300 mg capsule 300 mg PO BID 14 Days Qty: 28 0RF Referrals Follow up/Referrals: Bryan Hoyt APRN [Primary Care Provider] - See instructions Activity Restrictions/Add. Instructions Additional Instructions/Restrictions: Continue cefdinir. Begin taking Bactrim twice daily for 10 days. Do not consume alcohol with Bactrim, will cause vomiting. Call your family doctor to establish care for this visit to the emergency department and schedule follow-up within 48 hours to ensure improvement. If you have any worsening of your condition or any other concerning signs or symptoms, return to the emergency department or your primary care doctor for further evaluation. Clinical Impressions Clinical Impression: Cellulitis of multiple sites of scalp and neck Discharge ED Provider: Vahe Rivers General Adult HPI General Chief complaint: PAIN Stated complaint: Swelling spots in head and neck Time Seen by Provider: 12/11/22 16:46 Mode of Arrival: Ambulatory Source of Information: Patient Limitations: No Limitations Description of Symptoms (Recalled from ER Triage Doc. by RN): 46 yo F presents to ED with c/o right sided swollen bumps on head and neck. pt reports that she was seen here on tuesday and symptoms have continued to worsen. History of Present Illness HPI narrative: 46-year-old female with history of cysts of the head and neck presenting with swelling and pain. Patient states that she has had symptoms like this in the past. Head and neck swelling. Had cyst removed by primary care doctor a few years prior. For about a week, patient had progressively worsening swelling on the posterior aspect of her head. Was seen a couple days prior to arrival, CT without contrast demonstrated swellings without obvious concern for infection. Patient was given cefdinir after being diagnosed with right-sided otitis media and discharged home. Patient states swelling is gotten worse. Denies fevers or chills, but is now having right-sided neck tenderness with turning her neck to the left. Denies difficulty swallowing, difficulty breathing, vomiting, but pain is severe in intensity made worse with pressure and not getting any better. Related Data Home Medications Medication Instructions Recorded Confirmed omeprazole 40 mg-sodium 1 cap PO DAILY Reflux/Acid reflux 07/05/17 03/04/22 bicarbonate 1.1 gram capsule (Zegerid) bupropion HCl 150 mg 24 hr tablet, 150 mg PO DAILY Anxiety 03/04/22 03/04/22 extended release bupropion HCl 300 mg 24 hr tablet, 300 mg PO DAILY Anxiety 03/04/22 03/04/22 extended release buspirone 5 mg tablet 10 mg PO BID Anxiety 03/04/22 03/04/22 lisinopril 10 10 tab PO BID HTN 03/04/22 03/04/22 mg-hydrochlorothiazide 12.5 mg tablet Previous Rx's Medication Instructions Recorded cefdinir 300 mg capsule 300 mg PO BID 14 days #28 caps 12/09/22 sulfamethoxazole 800 1 tab PO BID 10 days #20 tabs 12/11/22 mg-trimethoprim 160 mg tablet (Bactrim DS) Allergies Allergy/AdvReac Type Severity Reaction Status Date / Time penicillin G [PENICILLIN G] Allergy Mild Verified 06/21/17 18:44 [facility] Disclaimer: The information contained in this section may have been updated after the patient was seen, as this informat
--- NOTE | 2022-12-11 17:16 | CT_ITS ---
PROCEDURE INFORMATION: Exam: CT Head With Contrast Exam date and time: 12/11/2022 5:42 PM Age: 46 years old Clinical indication: Other: Scalp swellings & neck pain; Additional info: Scalp swellings and pain TECHNIQUE: Imaging protocol: Computed tomography of the head with intravenous contrast. Radiation optimization: All CT scans at this facility use at least one of these dose optimization techniques: automated exposure control; mA and/or kV adjustment per patient size (includes targeted exams where dose is matched to clinical indication); or iterative reconstruction. Contrast material: ISOVUE; Contrast volume: 50 ml; Contrast route: IV; REPORTING DATA: Count of CT and Cardiac NM exams in prior 12 months: This patient has received [address] and 0 known cardiac nuclear medicine studies in the 12 months prior to the current study. COMPARISON: CT HEAD/BRAIN WO/W CON 12/09/2022 12:06 PM FINDINGS: Brain: Unremarkable white matter. No mass effect. No abnormal enhancing lesions. Empty sella. Cerebral ventricles: Unremarkable. No ventriculomegaly. Bones/joints: Unremarkable. No acute fracture. Paranasal sinuses: Visualized sinuses are unremarkable. No fluid levels. Mastoid air cells: Visualized mastoid air cells are well aerated. Soft tissues: Increased patchy areas of moderate right parietal and occipital scalp subcutaneous soft tissue swelling with extension into the upper posterior neck. No rim enhancing fluid collection. IMPRESSION: 1. No acute intracranial findings. 2. Increased patchy areas of moderate right parietal and occipital scalp subcutaneous soft tissue swelling with extension into the upper posterior neck.
--- NOTE | 2022-12-11 17:16 | CT_ITS ---
PROCEDURE INFORMATION: Exam: CT Neck With Contrast Exam date and time: 12/11/2022 5:39 PM Age: 46 years old Clinical indication: Neck pain; Additional info: Scalp swellings. Right-sided neck swelling/pain TECHNIQUE: Imaging protocol: Computed tomography of the neck with contrast. Radiation optimization: All CT scans at this facility use at least one of these dose optimization techniques: automated exposure control; mA and/or kV adjustment per patient size (includes targeted exams where dose is matched to clinical indication); or iterative reconstruction. Contrast material: ISOVUE; Contrast volume: 50 ml; Contrast route: IV; REPORTING DATA: Count of CT and Cardiac NM exams in prior 12 months: This patient has received [address] and 0 known cardiac nuclear medicine studies in the 12 months prior to the current study. COMPARISON: CT HEAD/BRAIN WO/W CON 12/09/2022 12:06 PM FINDINGS: Paranasal sinuses: Small right maxillary sinus mucous retention cyst. Pharynx: Unremarkable. No significant tonsillar enlargement. Larynx: Unremarkable. Epiglottis is normal. Prevertebral and retropharyngeal spaces: Unremarkable. Salivary glands: Normal. Glands are normal in size. Thyroid: Normal. No enlarged or calcified nodules. Lymph nodes: Mildly increased number of shotty right cervical lymph nodes possibly reactive in nature. No pathologically enlarged lymph nodes by size criteria. Trachea: Visualized trachea is unremarkable. Lungs: No acute findings. Right upper lobe calcified granuloma. Bones/joints: Unremarkable. No acute fracture. Soft tissues: Increased patchy areas of moderate right parietal and occipital scalp subcutaneous soft tissue swelling with extension into the upper posterior/right lateral neck. No rim enhancing fluid collection. IMPRESSION: Increased patchy areas of moderate right parietal and occipital scalp subcutaneous soft tissue swelling with extension into the upper posterior/right lateral neck.
[2022-12-11 17:25] LABS: Alanine Aminotransferase 25 U/L (12-78); Albumin/Globulin Ratio 1.3 (1.1-1.8); Alkaline Phosphatase 39 U/L (38-126); Aspartate Amino Transferase 28 U/L (14-36); Blood Urea Nitrogen 11 mg/dl (7-17); Calcium 8.7 mg/dl (8.4-10.2); Carbon Dioxide 27 mmol/L (22.0-30.0); Chloride 104 mmol/L (98-107); Creatinine Clearance Estimated 167 mL/min (50-200); Estimated Glomerular Filt Rate 90 ml/min (>60); GFR (African American) 109 ML/MIN (>60); Glucose 91 mg/dl (74-100); Sodium 139 mmol/L (136-145)
[2022-12-11 17:26] LABS: Bilirubin,Total 0.1 mg/dl (0.2-1.3)
[2022-12-11 17:29] LABS: Basophils % 0.6 % (0.1-2.0); Eosinophils # 0.1 K/mm3 (0.0-0.4); Eosinophils % 2.2 % (0.1-12.0); Hematocrit 35.7 % (37.0-47.0); Hemoglobin 11.1 g/dL (12.2-16.2); Lymphocytes # 2.1 K/mm3 (0.7-4.5); Lymphocytes % 33.8 % (10-50); Mean Corpuscular HGB Conc 31.2 g/dL (31.8-35.4); Mean Corpuscular Hemoglobin 26.3 pg (27.0-31.2); Mean Corpuscular Volume 84.3 fl (81-99); Mean Platelet Volume 8.2 fl (7.4-10.4); Monocytes # 0.3 K/mm3 (0.1-1.0); Neutrophils # 3.7 K/mm3 (1.8-7.8); Neutrophils % 59.3 % (37.0-80.0); Platelet Count 340 K/mm3 (142-424); Red Blood Count 4.23 M/mm3 (4.20-5.40); Red Cell Distribution Width 16.7 % (11.5-17.5); White Blood Count 6.2 K/mm3 (4.8-10.8)
[2022-12-11 17:53] LABS: Erythrocyte Sedimentation Rate 37 mm/hr (0-20)
[2022-12-11 19:01] VITALS: BP 129/74; PULSE 81; RESP 20; TEMP 36.7; O2SAT 97
== END 2022-12-11 19:03 | disposition home or self-care (01) ==
PROVIDERS: Emergency Provider Emergency Medicine; PCP Nurse Practitioner Family
DX: L03.811 Cellulitis of head [any part, except face] (principal); L03.221 Cellulitis of neck; E78.5 Hyperlipidemia, unspecified; Z87.891 Personal history of nicotine dependence
CPT/HCPCS: 70460; 70491; 80053; 85025; 85651; 96374; 99285; Q9967

== ENCOUNTER 2023-03-26 10:22 | Outpatient (CLI) | payer BC, SELFPAY ==
[2023-03-26 11:02] LABS: Basophils % 0.5 % (0.1-2.0); Eosinophils # 0.1 K/mm3 (0.0-0.4); Eosinophils % 0.9 % (0.1-12.0); Hematocrit 35.4 % (37.0-47.0); Hemoglobin 11.4 g/dL (12.2-16.2); Lymphocytes # 2.2 K/mm3 (0.7-4.5); Lymphocytes % 35.4 % (10-50); Mean Corpuscular HGB Conc 32.1 g/dL (31.8-35.4); Mean Corpuscular Hemoglobin 26.7 pg (27.0-31.2); Mean Corpuscular Volume 83.2 fl (81-99); Mean Platelet Volume 8.6 fl (7.4-10.4); Monocytes # 0.3 K/mm3 (0.1-1.0); Monocytes % 4.1 % (1.7-9.3); Neutrophils # 3.6 K/mm3 (1.8-7.8); Platelet Count 338 K/mm3 (142-424); Red Blood Count 4.25 M/mm3 (4.20-5.40); White Blood Count 6.1 K/mm3 (4.8-10.8)
[2023-03-26 11:15] LABS: Hemoglobin A1C 5.2 % (4.0-6.0)
[2023-03-26 11:21] LABS: Chloride 101 mmol/L (98-107); Sodium 137 mmol/L (136-145)
[2023-03-26 11:22] LABS: Potassium 4.3 mmoL/L (3.5-5.1)
[2023-03-26 11:24] LABS: Alanine Aminotransferase 20 U/L (12-78); Albumin Level 4.1 g/dl (3.5-5.0); Albumin/Globulin Ratio 1.5 (1.1-1.8); Alkaline Phosphatase 57 U/L (38-126); Anion Gap 11.3 mEq/L (5-15); Aspartate Amino Transferase 24 U/L (14-36); Bilirubin,Total 0.5 mg/dl (0.2-1.3); Blood Urea Nitrogen 9 mg/dl (7-17); Calcium 9.1 mg/dl (8.4-10.2); Carbon Dioxide 29 mmol/L (22.0-30.0); Estimated Glomerular Filt Rate 90 ml/min (>60); GFR (African American) 109 ML/MIN (>60); Globulin 2.7 g/dL (1.3-3.2); Glucose 81 mg/dl (74-100); Iron 40 ug/dL (37-170); Total Protein,Serum 6.8 g/dl (6.3-8.2)
[2023-03-26 11:25] LABS: Magnesium 1.8 mg/dl (1.6-2.3)
[2023-03-26 11:34] LABS: Total Iron Binding Capacity 468 ug/dL (265-497)
[2023-03-26 11:40] LABS: 25-OH Vitamin D, Total 23.1 ng/mL (30-100)
[2023-03-26 11:43] LABS: Free T4 (Free Thyroxine) 1.23 ng/dl (0.78-2.19)
[2023-03-26 11:56] LABS: Thyroid Stimulating Hormone 0.84 uIU/mL (0.465-4.68)
[2023-03-26 12:00] LABS: Ferritin 5.91 ng/ml (6.24-137)
[2023-03-26 13:37] LABS: Vitamin B12 > 1000 pg/mL (239-931)
[2023-03-27 15:40] LABS: Chol/HDL Ratio 2.6 (1-3.5); Cholesterol 174 mg/dl (140-200); HDL Cholesterol 67 mg/dl (40-60); Triglycerides 54 mg/dl (30-150); VLDL Cholesterol 11 mg/dL (0-40)
[2023-03-27 15:51] LABS: Direct LDL Cholesterol 81.59 mg/dL (100-129)
== END 2023-03-26 23:59 ==
LOC: LAB 10:24
PROVIDERS: PCP Nurse Practitioner Family; Visit Provider Nurse Practitioner Family
DX: D64.9 Anemia, unspecified (principal); D50.9 Iron deficiency anemia, unspecified; E55.9 Vitamin D deficiency, unspecified; Z79.899 Other long term (current) drug therapy
CPT/HCPCS: 36415; 80053; 80061; 82306; 82607; 82728; 82746; 83036; 83540; 83550; 83735; 84439; 84443; 85025

== ENCOUNTER 2023-10-24 07:20 | Outpatient (CLI) | payer BC, SELFPAY ==
[2023-10-24 07:37] LABS: Basophils # 0.1 K/mm3 (0-0.2); Basophils % 1.3 % (0.1-2.0); Eosinophils # 0.1 K/mm3 (0.0-0.4); Eosinophils % 2.2 % (0.1-12.0); Hematocrit 30.3 % (37.0-47.0); Hemoglobin 9.2 g/dL (12.2-16.2); Lymphocytes # 1.8 K/mm3 (0.7-4.5); Lymphocytes % 36.6 % (10-50); Mean Corpuscular HGB Conc 30.3 g/dL (31.8-35.4); Mean Corpuscular Hemoglobin 25.3 pg (27.0-31.2); Mean Corpuscular Volume 83.5 fl (81-99); Mean Platelet Volume 8.3 fl (7.4-10.4); Monocytes # 0.2 K/mm3 (0.1-1.0); Monocytes % 3.7 % (1.7-9.3); Neutrophils # 2.8 K/mm3 (1.8-7.8); Neutrophils % 56.3 % (37.0-80.0); Platelet Count 363 K/mm3 (142-424); Red Blood Count 3.63 M/mm3 (4.20-5.40); Red Cell Distribution Width 15.4 % (11.5-17.5)
[2023-10-24 08:04] LABS: Iron 34 ug/dL (37-170)
[2023-10-24 08:14] LABS: Total Iron Binding Capacity 472 ug/dL (265-497)
[2023-10-24 08:38] LABS: Ferritin 5.23 ng/ml (6.24-137)
[2023-10-24 09:36] LABS: Folate 6.47 ng/mL; Vitamin B12 977 pg/mL (239-931)
== END 2023-10-24 23:59 | disposition home or self-care (01) ==
LOC: LAB 07:22
PROVIDERS: PCP Nurse Practitioner Family; Visit Provider Nurse Practitioner Family
DX: D50.9 Iron deficiency anemia, unspecified (principal)
CPT/HCPCS: 36415; 82607; 82728; 82746; 83540; 83550; 85025

== ENCOUNTER 2023-11-09 08:09 | Outpatient (CLI) | payer BC, SELFPAY ==
[2023-11-09 08:25] VITALS: BP 119/68; PULSE 68; RESP 18; O2SAT 99
[2023-11-09] MEDS: SODIUM CHLORIDE 0.9% 50ML BAG 50 ML IV (08:25)
[2023-11-09] MEDS: IRON SUCROSE COMPLEX 200 MG in 0.9 % SODIUM CHLORIDE 100 ML 220 MG IV (08:25)
[2023-11-09] MEDS: SODIUM CHLORIDE 0.9% 10ML FLUSH SYRINGE 10 ML IV (08:25)
[2023-11-09 09:00] VITALS: BP 131/62; PULSE 65
== END 2023-11-09 09:10 | disposition home or self-care (01) ==
LOC: INF 08:09
PROVIDERS: PCP Nurse Practitioner Family; Visit Provider Nurse Practitioner Family
DX: D50.9 Iron deficiency anemia, unspecified (principal)
CPT/HCPCS: 96365; J1756

== ENCOUNTER 2023-11-16 08:10 | Outpatient (CLI) | payer BC, SELFPAY ==
[2023-11-16 08:25] VITALS: BP 104/58; PULSE 65; RESP 18; TEMP 36.7; O2SAT 99
[2023-11-16] MEDS: SODIUM CHLORIDE 0.9% 10ML FLUSH SYRINGE 10 ML IV (08:25)
[2023-11-16] MEDS: IRON SUCROSE COMPLEX 200 MG in 0.9 % SODIUM CHLORIDE 100 ML 220 MG IV (08:25)
[2023-11-16] MEDS: SODIUM CHLORIDE 0.9% 50ML BAG 50 ML IV (08:25)
[2023-11-16 08:56] VITALS: BP 115/66; PULSE 65; RESP 18; O2SAT 99
== END 2023-11-16 08:58 | disposition home or self-care (01) ==
LOC: INF 08:11
PROVIDERS: PCP Nurse Practitioner Family; Visit Provider Internal Medicine Medical Oncology
DX: D50.9 Iron deficiency anemia, unspecified (principal)
CPT/HCPCS: 96365; J1756

== ENCOUNTER 2023-11-23 07:51 | Outpatient (CLI) | payer BC, SELFPAY ==
[2023-11-23 08:25] VITALS: BP 92/55; PULSE 64; RESP 18; O2SAT 99
[2023-11-23] MEDS: IRON SUCROSE COMPLEX 200 MG in 0.9 % SODIUM CHLORIDE 100 ML 220 MG IV (08:25)
[2023-11-23] MEDS: SODIUM CHLORIDE 0.9% 50ML BAG 50 ML IV (08:25)
[2023-11-23 08:56] VITALS: BP 89/56; PULSE 66; RESP 18; O2SAT 99
== END 2023-11-23 08:56 | disposition home or self-care (01) ==
LOC: INF 07:51
PROVIDERS: PCP Nurse Practitioner Family; Visit Provider Internal Medicine Medical Oncology
DX: D50.9 Iron deficiency anemia, unspecified (principal)
CPT/HCPCS: 96365; J1756

== ENCOUNTER 2023-11-30 07:52 | Outpatient (CLI) | payer BC, SELFPAY ==
[2023-11-30] MEDS: SODIUM CHLORIDE 0.9% 10ML FLUSH SYRINGE 10 ML IV (08:10)
[2023-11-30 08:11] VITALS: BP 95/53; PULSE 71; RESP 16; TEMP 36.4; O2SAT 100; BMI 39.1
[2023-11-30] MEDS: IRON SUCROSE COMPLEX 200 MG in 0.9 % SODIUM CHLORIDE 100 ML 220 MG IV (08:16)
[2023-11-30] MEDS: SODIUM CHLORIDE 0.9% 50ML BAG 50 ML IV (08:16)
[2023-11-30 08:50] VITALS: BP 101/58; BP 99/64; PULSE 70; PULSE 78; RESP 16; RESP 18; TEMP 36.4; O2SAT 100; O2SAT 99
== END 2023-11-30 08:52 | disposition home or self-care (01) ==
PROVIDERS: PCP Nurse Practitioner Family; Visit Provider Internal Medicine Medical Oncology
DX: D50.9 Iron deficiency anemia, unspecified (principal)
CPT/HCPCS: 96365; J1756

== ENCOUNTER 2023-12-07 07:58 | Outpatient (CLI) | payer BC, SELFPAY ==
[2023-12-07 08:18] VITALS: BP 95/60; PULSE 69; RESP 18; O2SAT 99; BMI 39.4
[2023-12-07] MEDS: IRON SUCROSE COMPLEX 200 MG in 0.9 % SODIUM CHLORIDE 100 ML 220 MG IV (08:30)
[2023-12-07] MEDS: SODIUM CHLORIDE 0.9% 50ML BAG 50 ML IV (08:30)
[2023-12-07 09:10] VITALS: BP 100/50; PULSE 50; RESP 18; O2SAT 95
== END 2023-12-07 09:10 | disposition home or self-care (01) ==
LOC: INF 07:58
PROVIDERS: PCP Nurse Practitioner Family; Visit Provider Internal Medicine Medical Oncology
DX: D50.9 Iron deficiency anemia, unspecified (principal)
CPT/HCPCS: 96365; J1756

== ENCOUNTER 2024-01-04 13:47 | Outpatient (CLI) | payer BC, SELFPAY ==
[2024-01-04 14:25] LABS: Basophils # 0.1 K/mm3 (0-0.2); Eosinophils # 0.2 K/mm3 (0.0-0.4); Eosinophils % 1.8 % (0.1-12.0); Hematocrit 38.6 % (37.0-47.0); Hemoglobin 12.4 g/dL (12.2-16.2); Lymphocytes # 2.3 K/mm3 (0.7-4.5); Lymphocytes % 29.5 % (10-50); Mean Corpuscular HGB Conc 32.1 g/dL (31.8-35.4); Mean Corpuscular Hemoglobin 27.6 pg (27.0-31.2); Monocytes # 0.3 K/mm3 (0.1-1.0); Monocytes % 4.1 % (1.7-9.3); Neutrophils % 63.6 % (37.0-80.0); Platelet Count 359 K/mm3 (142-424); Red Blood Count 4.49 M/mm3 (4.20-5.40); Red Cell Distribution Width 19.1 % (11.5-17.5); White Blood Count 7.9 K/mm3 (4.8-10.8)
[2024-01-04 14:41] LABS: Iron 70 ug/dL (37-170)
[2024-01-04 14:50] LABS: Total Iron Binding Capacity 351 ug/dL (265-497)
[2024-01-04 15:18] LABS: Ferritin 59.3 ng/ml (6.24-137)
== END 2024-01-04 23:59 | disposition home or self-care (01) ==
LOC: LAB 13:48
PROVIDERS: PCP Nurse Practitioner Family; Visit Provider Internal Medicine Medical Oncology
DX: D50.9 Iron deficiency anemia, unspecified (principal)
CPT/HCPCS: 36415; 82728; 83540; 83550; 85025

== ENCOUNTER 2024-11-16 15:24 | Emergency (ER) | payer SELFPAY ==
--- OUTSIDE RECORDS SUMMARY | 2023-07-14 07:30 | XMS_ITS ---
Author Organization [facility] Address [address] [place] [address] Care Team Providers Care Hub Bander Name Role Phone Carmela Caban [facility] [phone] Results Component Value Reference Range Notes *US Pelvis Complete Transabd ominal/Vaginal (Non-OB) Reviewed date:07/14/2023 02:08:31 PM Interpretation: Performing Lab: Notes/Report: [facility] Transvaginal Pelvic Study Report Name: MELECIO WALL Accession/Encounter No:[id number] : 1975 Age: 47 Gender: F Study Date: July 14, 2023 Study Time: 11:26 AM Reading Group: Carmela Caban MD Referring Group: Carmela Caban MD Ordering Phys: Carmela Caban MD Mail Carrier: Tamika Nair RDMS Equipment: Affiniti 30 Study Quality: Good Indications: Dyspareunia and Menorrhagia Leslye Fung PT A complete pelvic transvaginal ultrasound was performed. Sag AP Trans Volume cm cm cm ml Uterus 4.91 3.91 4.67 46.94 Right ovary: 1.82 1.45 1.33 1.84 Left ovary: 2.29 1.51 1.31 2.37 Endometrium thickness: 4.9 mm Findings: A transvaginal exam was performed. The uterus is normal and axial. The uterus is 4.91 x 3.91 x 4.67 cm, with volume of 46.94 ml. The endometrium measures 4.9 mm. Unremarkable right ovary measures 1.82 x 1.45 x 1.33 cm, volume 1.84 ml. Unremarkable left ovary measures 2.29 x 1.51 x 1.31 cm, volume 2.37 ml . The cervix is 1.84 cm long. Conclusions: Uterus is slightly heterogeneous with no fibroids noted. Ovaries appear normal. No free fluid or adnexal masses noted. Approved By: Carmela Caban MD Approved at: July 14, 2023 12:46 PM EDT Electronically Signed on Study[employer] MELECIO DIANDRA 2023-07-14 Page 1 of 1 Imaging Center - , [facility] - Jennifer Lorenzana REASON FOR VISIT Antonieta pt-heavy and painful menses, hx endometriosis Encounters Encounter Location Date Provider Diagnosis [facility]- [address] [place] [address] 07/14/2023 Carmela Caban Menorrhagia, premenopausal N92.4 Assessments Encounter Date Diagnosis (ICD Code) Assessment Notes Treatment Notes Treatment Clinical Notes Section Notes 07/14/2023 Menorrhagia, premenopausal (ICD-10 - N92.4) Plan Of Treatment No Information Progress Notes * Melecio WALLDOB:1975 (48 yo F)Acc No.[id number]:07/14/2023 Progress Note Patient: Melecio Zhang Provider: Darell Caban MD :1975 A ge:47 Y S ex:Female Date:07/14/2023 Address:[address] [place] [address] [place], [id number] Subjective: * Chief Complaints: * G uiler pt-heavy and painful menses, hx endometriosis Assessment: * Assessment: 1. M enorrhagia, premenopausal - N92.4 Plan: * Treatment: Billing Information: * Procedure Codes: * Electronic signature of Hoa Caban MD on 11/16/2024 at 04:03 PM EDT Sign off status: Pending Visit Status: Mariana FULTON (Check Out) * Provider: Darell Caban MD Date: 0 07/14/2023 Generated for Leon reynaga/Saleem/Tayloritting on: 0 11/16/2024 04:03 PM EDT
[2024-11-16 15:31] VITALS: BP 128/79; PULSE 114; RESP 18; TEMP 37; O2SAT 100; BMI 44.6
--- NOTE | 2024-11-16 15:44 | XR_ITS ---
PROCEDURE INFORMATION: Exam: XR Complete Acute Abdomen Series Including Chest Exam date and time: 11/16/2024 4:57 PM Age: 48 years old Clinical indication: Abdominal pain; Prior surgery; Surgery date: 6+ months; Surgery type: Gastric sleeve; Additional info: Abdominal pain, HX of gastric sleeve/hernia TECHNIQUE: Imaging protocol: Radiologic exam. Complete acute abdomen series, including 2 or more views of the abdomen and a single view chest. COMPARISON: No relevant prior studies available. FINDINGS: Tubes, catheters and devices: Multiple tubal ligation clips noted in the pelvis. Linear density overlying the left upper sacrum is favored to represent artifact, although small linear metallic foreign body can not be excluded. Lungs: Normal. No consolidation. Pleural spaces: Normal. No pleural effusions. No pneumothorax. Heart/Mediastinum: Normal. No cardiomegaly. Gastrointestinal tract: Normal. No bowel dilation. Intraperitoneal space: Normal. No free air. Bones/joints: Normal. No acute fracture. Soft tissues: Unremarkable IMPRESSION: Linear artifact versus small metallic foreign body projecting over the left upper sacrum. Otherwise unremarkable abdomen
--- OUTSIDE RECORDS SUMMARY | 2024-11-16 16:03 | XMS_ITS | Clinical Summary ---
Author Organization Healthcare Address [address] [place] [address] Care Team Providers Care Ehs Engineer Name Role Phone Dung Huntley MD Primary Care Provider [phone] Family History Medical History Relation Name Comments Diabetes Father Hypertension Father Diabetes Mother Hypertension Mother Diabetes Other Other cancer Paternal Grandmother Relation Name Status Comments Father Mother Other Paternal Grandmother Social History Tobacco Use Types Packs/Day Years Used Date Smoking Tobacco: Former Alcohol Use Standard Drinks/Week Comments Yes 0 (1 standard drink = 0.6 oz pur e alcohol) Comments Unknown Sex and Gender Information Value Date Recorded Sex Assigned at Not on file Legal Sex Female 8:23 PM EDT Gender Identity Not on file Sexual Orientation Not on file Plan of Treatment Health Maintenance Due Date Last Done Comments [facility]-Depression Screening 1976 [facility]-HIV Screening 1976 [facility]-Hepatitis C Screening 1976 [facility]-Infant/Child/Adol SDOH Screenings 1976 [facility]Y- SDOH Screenings 1994 [facility]Y-Adult SDOH Screenings 1994 [facility]Y-Hepatitis B Vaccines (1 of 3 - 19+ 3-dose series) 12/19/1995 [facility]Y-Pap Smear 1997 [facility]Y-Cervical Cancer Screening 2006 UKY-HPV/Cotest 2006 CT Colonography 2021 Colonoscopy 2021 FIT-DNA 2021 FIT 2021 FOBT 2021 Sigmoidoscopy 2021 UKY-Colorectal Cancer Screening 2021 [id number] Vaccine (1 - 20 24-25 season) 2023 [facility]Y-Influenza Vaccine (#1) 2024 UKY-Zoster Vaccines (1 of 2) 2026 [facility]Y-DTaP,Tdap,and Td Vaccine s (2 - Td or Tdap) 07/31/2031 07/30/2021 HPV Vaccines Aged Out No longer eligi ble based on patient's age to complete this topic UKY-HIB Vaccines Aged Out No longer e ligible based on patient's age to complete this topic UKY-Hepatitis A Vaccines Aged Out No longer eligible based on patient's age to complete this topic UKY-IPV Vaccines Aged Out No longer e ligible based on patient's age to complete this topic UKY-Pneumococcal Vaccine: Pediatrics (0 to 5 Years) and At-Risk Patients (6 to 49 Years) Aged Out No long er eligible based on patient's age to complete this topic UKY-Rotavirus Vaccines Aged Out No lo nger eligible based on patient's age to complete this topic Care Teams Ehs Engineer Relationship Specialty Start Date End Date Dung Huntley MD [address] [place] [address] [place] [id number] PCP - General 07/25/20
--- OUTSIDE RECORDS SUMMARY | 2024-11-16 16:03 | XMS_ITS | Patient Health Record ---
Author Organization [facility] Address [address] [facility] [address] [place] [address] Care Team Providers Care Accounts Payable Bookkeeper Name Role Phone Carmela Caban Unavailable [phone] Reason For Referral No Information Social History Social History Sexual History: Social Info Question Answer Notes Sexual History Had sex in the past 12 months (vaginal, oral, or anal)? Yes Drugs/Alcohol: Social Info Question Answer Notes Drugs Have you used drugs other than those for medical reasons in the past 12 months? No Alcohol Screen Did you have a drink containing alcohol in the past year? Yes Points 0 Interpretation Negative Tobacco Use: Social Info Question Answer Notes Tobacco Use/Smoking Are you a former smoker Tobacco use other than smoking: Are you an other tobac co user? No Problems Problem Type SNOMED Code ICD Code Onset Dates Problem Status W/U Status Risk Notes Problem Menorrhagia (finding) (090963003) Menorrhagia, premenopausal (N92.4) Active confirmed Plan Of Treatment No Information Insurance Providers Payer Name Payer Address Payer Phone Subscriber Number Group Number Insured Name Patient Relationship to Insured Coverage Start Date Coverage End Date Brenda GALLEGOS [address] [place] [address] [phone] [id number] Self - patient is the insured
--- OUTSIDE RECORDS SUMMARY | 2024-11-16 16:03 | XMS_ITS | Clinical Summary ---
Author Organization [facility] Address [address] [place] [address] Care Team Providers Care Miniature Set Constructor Name Role Phone Dung Huntley MD Primary Care Provider [phone] Allergies Active Allergy Reactions Criticality Noted Date Comments Penicillins Rash Low 07/02/2020 Medications lisinopril-hydro chlorothiazide (PRINZIDE,ZESTOR ETIC) 10-12.5 MG per tablet Take 1 tablet by mouth Daily. Active Omeprazole-Sodiu m Bicarbonate (Zegerid) 20-1100 MG capsule Take 1 capsule by mouth As Needed (REFLUX). Active buPROPion (ZYBAN) 150 MG 12 hr tablet Take 150 mg by mouth Daily. Active buPROPion (WELLBUTRIN) 100 MG tablet Take 100 mg by mouth 2 (Two) Times a Day. Active buPROPion XL (WELLBUTRIN XL) 300 MG 24 hr tablet Take 300 mg by mouth Every Morning. Active busPIRone (BUSPAR) 10 MG tablet Take 10 mg by mouth 2 (Two) Times a Day. Active clindamycin (CLEOCIN) 300 MG capsule Take 300 mg by mouth 3 (Three) Times a Day. Active Social History Tobacco Use Types Packs/Day Years Used Date Smoking Tobacco: Former Cigarettes 2 2018 Smokeless Tobacco: Never Alcohol Use Standard Drinks/Week Comments Never 0 (1 standard drink = 0.6 oz pur e alcohol) AUDIT-C Answer Date Recorded Q1: How often do you have a drink containing alc ohol? Never 07/02/2020 Average Number of Drinks Not on file 021 Frequency of Binge Drinking Not on file 06/13 Abuse Screen Answer Date Recorded Unsafe at Home or Work/School Not on file Feels Threatened by Someone? Not on file 11/2022 Does Anyone Keep You from Co ntacting Others or Doint Things Outside the Home? Not on file 12/20/2022 Physical Sign of Abuse Present Not on file 1 Housing Stability Answer Date Recorded Current Living Arrangements Not on file 11/2022 Potentially Unsafe Housing Conditions Not on guillermo e 12/20/2022 Family and Community Support Answer Sahdy e Recorded Help with Day-to-Day Activities Not on file 12/20/2022 Lonely or Isolated Not on file 12/20/2022 Employment Answer Date Recorded Do you want help finding or keeping work or a marli b? Not on file 12/20/2022 Disabilities Answer Date Recorded Concentrating, Remembering, or Making Decisions Difficulty Not on file 12/20/2022 Doing Errands Independently Difficulty Not on fi le 12/20/2022 Education Answer Date Recorded Help with school or training? Not on file Preferred Language Not on file 12/20/2022 Comments No Sex and Gender Information Value Date Recorded Sex Assigned at Not on file Legal Sex Female 1:23 PM EDT Gender Identity Not on file Sexual Orientation Not on file Last Filed Vital Signs Vital Sign Reading Time Taken Comments Blood Pressure 140/80 07/04/2020 2:30 PM EDT Pulse 94 07/04/2020 2:30 PM EDT Temperature 36.6 C (97.8 F) 07/04/2020 2:30 PM EDT Respiratory Rate 18 07/04/2020 2:30 PM EDT Oxygen Saturation 98% 07/04/2020 2:30 PM EDT Inhaled Oxygen Concentration - - Weight 102 kg (225 lb) 07/04/2020 6:57 AM EDT Height 162.6 cm (5' 4 ) 07/04/2020 6:57 AM EDT Body Mass Index 38.62 07/04/2020 6:57 AM EDT Plan of Treatment Health Maintenance Due Date Last Done Comments Annual Gynecologic Pelvic an d Breast Exam 1976 TDAP/TD VACCINES (1 - Tdap) 12/19/1995 MAMMOGRAM 2016 ANNUAL PHYSICAL 06/30/2020 HEPATITIS C SCREENING 06/30/2020 COLOGUARD 2021 COLON CANCER SCREENING 5 YEA R SIGMOIDOSCOPY 2021 COLONOSCOPY 2021 [address]ECTAL CANCER SCREENING 2021 CT COLONOGRAPHY 2021 FECAL OCCULT BLOOD TEST 2021 FIT Testing (1 year) 2021 COVID-19 Vaccine ( - 2023-2 5 season) 2024 INFLUENZA VACCINE 12/12/2024 Pneumococcal Vaccine 0-49 Aged Out No longer eligible based on patient's age to complete this topic Insurance [place] [id number] [facility] PPO Care Teams Miniature Set Constructor Relationship Specialty Start Date End Date Dung Huntley MD [address] [place] [address] [place] [id number] PCP - General Adolescent Medicine 07/02/20
[2024-11-16 16:07] LABS: Hematocrit 43.7 % (37.0-47.0); Hemoglobin 13.9 g/dL (12.2-16.2); Immature Granulocytes % 0.3 %; Mean Corpuscular HGB Conc 31.8 g/dL (31.8-35.4); Mean Corpuscular Hemoglobin 29.0 pg (27.0-31.2); Mean Corpuscular Volume 91.2 fl (81-99); Nucleated Red Blood Cells % 0 %; Platelet Count 410 K/mm3 (142-424); Red Blood Count 4.79 M/mm3 (4.20-5.40); Red Cell Distribution Width-SD 42.0 fL; White Blood Count 9.4 K/mm3 (4.8-10.8)
[2024-11-16 16:08] LABS: Microscopic, Urine URINE MICROSCOPIC (MICROSCOPIC)
[2024-11-16 16:11] LABS: Bilirubin,Urine Negative (Negative); Color,Urine YELLOW (Yellow); Glucose,Urine (UA) Negative (Negative); Ketones,Urine Negative (Negative); Leukocyte Esterase,Urine Negative (Negative); PH,Urine 6.0 (5.0-8.5); Protein,Urine Negative (Negative); Specific Gravity, Urine <= 1.005 (1.005-1.030); Urobilinogen,Urine 0.2 EU/dl (0.2)
[2024-11-16 16:23] LABS: Alanine Aminotransferase 44 U/L (12-78); Albumin Level 5.0 g/dl (3.5-5.0); Albumin/Globulin Ratio 1.3 (1.1-1.8); Alkaline Phosphatase 247 U/L (38-126); Anion Gap 19.1 mEq/L (5-15); Aspartate Amino Transferase 131 U/L (14-36); Bilirubin,Total 2.0 mg/dl (0.2-1.3); Blood Urea Nitrogen 18 mg/dl (7-17); Calcium 9.2 mg/dl (8.4-10.2); Carbon Dioxide 20 mmol/L (22.0-30.0); Chloride 101 mmol/L (98-107); Creatinine Clearance Estimated 75 mL/min (50-200); Creatinine,Serum 0.80 mg/dl (0.52-1.04); Estimated Glomerular Filt Rate 77 ml/min (>60); GFR (African American) 93 ML/MIN (>60); Globulin 4.0 g/dL (1.3-3.2); Glucose 80 mg/dl (74-100); Lipase 54 U/L (23-300); Potassium 4.1 mmoL/L (3.5-5.1); Sodium 136 mmol/L (136-145); Total Protein,Serum 9.0 g/dl (6.3-8.2)
[2024-11-16 16:40] LABS: C-Reactive Protein 1.9 mg/L (0-4)
[2024-11-16 16:43] LABS: HCG Qualitative, Serum Negative (Negative)
[2024-11-16 17:06] LABS: Bacteria,Urine Trace /lpf
[2024-11-16 17:07] LABS: WBC,Urine Occasional #/hpf (0-3)
--- NOTE | 2024-11-16 18:23 | CT_ITS ---
PROCEDURE INFORMATION: Exam: CT Abdomen And Pelvis With Contrast Exam date and time: 11/16/2024 6:30 PM Age: 48 years old Clinical indication: Abdominal pain; Epigastric; Prior surgery; Surgery date: 6+ months; Surgery type: Caden en y, cholecystectomy, flp; Additional info: Caden en y 10ya, epigastric pain TECHNIQUE: Imaging protocol: Computed tomography of the abdomen and pelvis with contrast. Radiation optimization: All CT scans at this facility use at least one of these dose optimization techniques: automated exposure control; mA and/or kV adjustment per patient size (includes targeted exams where dose is matched to clinical indication); or iterative reconstruction. Contrast material: ISOVUE; Contrast volume: 75 ml; Contrast route: IV; COMPARISON: CR Acute Abdomen 11/16/2024 4:57 PM FINDINGS: Liver: Normal. No mass. Gallbladder and biliary ducts: Normal. No calcified stones. No ductal dilation. Pancreas: Normal. No ductal dilation. Spleen: Normal. No splenomegaly. Adrenal glands: Normal. No mass. Kidneys and ureters: Single small calyceal stone in the right kidney. Left kidney appears normal. No ureteral stone or hydronephrosis. Stomach and bowel: Evidence of prior gastric bypass surgery. No bowel wall thickening or evidence of bowel obstruction. Appendix: The appendix is visualized and appears normal. Intraperitoneal space: Unremarkable. No free air. No significant fluid collection. Vasculature: Mild atherosclerotic calcification throughout the aorta. No evidence of aneurysm or dissection. Lymph nodes: Unremarkable. No enlarged lymph nodes. Urinary bladder: Unremarkable as visualized. Reproductive: Bilateral tubal ligation clips in the pelvis. Uterus and adnexal regions appear unremarkable. Bones/joints: Mild degenerative changes throughout the lower spine. No vertebral body compression. No acute fracture. Soft tissues: Unremarkable. No radiodense foreign bodies evident. Specifically, linear density described on recent plain film appears to have represented artifact IMPRESSION: No acute abnormality. No unexpected foreign bodies.
[2024-11-16] MEDS: IOPAMIDOL-370 (76%);100ML BOTTLE 75 ML IV (18:34)
[2024-11-16] MEDS: SODIUM CHLORIDE 0.9% 10ML SYR (RAD ONLY) 10 ML IV (18:34)
--- NOTE | 2024-11-16 18:34 | HMH.EDGENADL ---
Discharge Plan Disposition Patient Disposition: Xfer Other Prescriptions Prescriptions: No Action omeprazole-sodium bicarbonate [Zegerid] 40-1.1 mg-gram capsule 1 cap PO DAILY meloxicam 7.5 mg tablet 7.5 mg PO DAILY buspirone 10 mg tablet 10 mg PO Patient Comments: TAKE 1 TABLET BY MOUTH TWICE DAILY lisinopril-hydrochlorothiazide 20-25 mg tablet PO Patient Comments: TAKE 1 TABLET BY MOUTH ONCE DAILY bupropion HCl 300 mg tablet extended release 24 hr 300 mg PO DAILY Patient Comments: TAKE 1 TABLET BY MOUTH EVERY 24 HOURS bupropion HCl 150 mg tablet extended release 24 hr 150 mg PO DAILY Patient Comments: TAKE 1 TABLET BY MOUTH EVERY 24 HOURS cefdinir 300 mg capsule 300 mg PO BID 14 Days Qty: 28 0RF sulfamethoxazole-trimethoprim [Bactrim DS] 800-160 mg tablet 1 tab PO BID 10 Days Qty: 20 0RF Referrals Follow up/Referrals: Bryan Hoyt APRN [Primary Care Provider, Medical] - See instructions Clinical Impressions Clinical Impression: Choledocholithiasis, Abdominal pain, epigastric, History of Caden-en-Y gastric bypass Instructions Patient Instructions: DI for Acute Abdominal Pain Print Language Print Language: Faroese Discharge ED Provider: Darell Gaxiola General Adult HPI General Chief complaint: Abdominal Pain Stated complaint: Abdominal pain,nausea,cold sweats Time Seen by Provider: 11/16/24 18:19 Mode of Arrival: Ambulatory Source of Information: Patient Description of Symptoms (Recalled from ER Triage Doc. by RN): patient presents to the ED for sevre abdominal pain. patiente stated that the pain has been ongoing for hte last month but while at work today its got really bad and she was brekaing out in cold sweats. the pain is located right above her umilicus and she rates it a 8/10. patient stated she has noticed a buldge at her belly button around 2 weeks ago. History of Present Illness HPI narrative: Patient is a 48-year-old female who is 10 years status post a Caden-en-Y gastric bypass surgery done in [place] presents today with 1 month of intermittent but significantly worsening epigastric abdominal pain has been postprandial. Today got severe after eating a meal and this prompted her to come to the emergency department. No hemoptysis no hematemesis no history of any ulcerations or any complications from her gastric bypass in the past. No melena etc. Related Data Home Medications ?Medication ?Instructions ?Recorded ?Confirmed omeprazole 40 mg-sodium 1 cap PO DAILY Reflux/Acid reflux 07/05/17 01/11/24 bicarbonate 1.1 gram capsule (Zegerid) bupropion HCl 150 mg 24 hr tablet, 150 mg PO DAILY Anxiety 03/04/22 01/11/24 extended release bupropion HCl 300 mg 24 hr tablet, 300 mg PO DAILY Anxiety 03/04/22 01/11/24 extended release buspirone 10 mg tablet 10 mg PO 01/11/24 01/11/24 lisinopril 20 tab PO 01/11/24 01/11/24 mg-hydrochlorothiazide 25 mg tablet meloxicam 7.5 mg tablet 7.5 mg PO DAILY Arthritis base of 01/11/24 01/11/24 thumbs Previous Rx's ?Medication ?Instructions ?Recorded cefdinir 300 mg capsule 300 mg PO BID 14 days #28 caps 12/09/22 sulfamethoxazole 800 1 tab PO BID 10 days #20 tabs 12/11/22 mg-trimethoprim 160 mg tablet (Bactrim DS) Allergies Allergy/AdvReac Type Severity Reaction Status Date / Time penicillin G (PENICILLIN G) Allergy Mild Verified 01/11/24 09:02 [facility] Disclaimer: The information contained in this section may have been updated after the patient was seen, as this information can be updated by other users. Medical History Leg cramps Leg pain Edema HLD (hyperlipidemia) Surgical History H/O: History of endometrial ablation History of cholecystectomy Hx of gastric bypass Family History Other Family history of COPD (chronic obstructive pulmonary disease) Family history of atrial fibrillation Family history of hypertension Social History Smoking Status: Never smoker alcohol intake: never substance use type: denies use current occupational status: employed Travel in the last 8 weeks?: None adopted: No caregiver/support person: No foster care: No household members: family housing: house lives independently: Yes marital status: education level: high school service: No shelter: No current occupational exposures/hazards: No sexually active: Yes caffeine: Yes special sharon needs: No agree to transfusion: No do you feel safe at home: Yes victim of physical abuse: No victim of emotional abuse: No victim of sexual abuse: No would you like helpful sources: No Have you lived/traveled outside US in past 30 days?: No Contact w/someone who lives/traveled outside US past 30 days?: No Exposure to someone with infectious disease in past 14 days?: No Do you have a fever (greater than 100.4 F or 38 C)?: No Have you tested positive for COVID-19?: No Exposed to someone with COVID-19 in past 14 days?: No Do you have a sore throat?: No Do you have a cough?: No Do you have any weakness?: No Do you have any diarrhea?: No Are you experiencing any unusual bleeding?: No Do you have any muscle aches/pain?: No Do you have any abdominal pain?: No Are you experiencing loss of taste or smell?: No Other Medical History Have you received the Flu Vaccine for this season: No Have you received the Pneumonia Vaccine: No (REFUSED) ROS Obtained: Yes All systems reviewed & no additional complaints except as documented Physical Exam General General appearance: alert Respiratory Respiratory exam: Present normal lung sounds bilaterally Cardiovascular Cardiovascular exam: Present regular rate Abdominal Exam Abdominal exam: Present tenderness (Epigastric tenderness to palpation) Neurological Exam Neurological exam: Present alert and oriented X3 Medical Decision Making Medical Records Screening: Per USPSTF and CDC recommendations, given the prevalence of disease in our region, it is our hospital?s policy to screen for HIV and viral Hepatitis for all patients aged 18 and over and those with ongoing risk factors. Alcides Inquiry Pt receiving controlled substance: No Vital Signs: 11/16/24 15:31 11/16/24 18:48 Temperature 98.6 F Temperature Source Temporal Artery Scan Pulse Rate 87 Pulse Rate [Right Radial] 114 H Respiratory Rate 18 17 Blood Pressure 137/72 Blood Pressure [Right Arm] 128/79 Blood Pressure Mean [Right Arm] 95 Blood Pressure Source [Right Arm] Automatic Cuff Blood Pressure Position [Right Arm] Sitting 02 Sat by Pulse Oximetry 100 99 Oxygen Delivery Method Room Air Room Air Lab Data Lab results reviewed: Yes I reviewed the patient's lab results. Lab Results 11/16/24 15:40: WBC 9.4, RBC 4.79, Hgb 13.9, Hct 43.7, MCV 91.2, MCH 29.0, MCHC 31.8, RDW 12.7, Plt Count 410, MPV 10.4, Neut % (Auto) 65.2, Lymph % (Auto) 26.1, [place] % (Auto) 5.8, Eos % (Auto) 1.9, Baso % (Auto) 0.7, Neut # (Auto) 6.2, Lymph # (Auto) 2.5, [place] # (Auto) 0.6, Eos # (Auto) 0.2, Baso # (Auto) 0.1, ESR 22 H, Sodium 136, Potassium 4.1, Chloride 101, Carbon Dioxide 20 L, Anion Gap 19.1 H, BUN 18 H, Creatinine 0.80, Estimated Creat Clear 75, Estimated GFR 77, Est GFR ( Amer) 93, Glucose 80, Calcium 9.2, Total Bilirubin 2.0 H, AST 131 H, ALT 44, Alkaline Phosphatase 247 H, C-Reactive Protein 1.9, Total Protein 9.0 H D, Albumin 5.0, Globulin 4.0 H, Albumin/Globulin Ratio 1.3, Lipase 54, Serum HCG, Qual Negative 11/16/24 16:04: Urine Color Yellow, Urine Appearance Clear, Urine pH 6.0, Ur Specific [place] <= 1.005, Urine Protein Negative, Urine Glucose (UA) Negative, Urine Ketones Negative, Urine Blood Negative, Urine Nitrate Negative, Urine Bilirubin Negative, Urine Urobilinogen 0.2, Ur Leukocyte Esterase Negative, Urine RBC None, Urine WBC Occasional, Ur Squamous Epith Cells 3-5, Urine Bacteria Trace 11/16/24 15:40 11/16/24 15:40 Orders (Tests/Meds): ED MEDICATIONS Generic Name Dose Route Start Last Admin Trade Name Freq PRN Reason Stop Dose Admin Sodium Chloride 10 ml 11/16/24 18:32 11/16/24 18:34 Sodium Chloride 0.9% 10ml Syr (Rad Only) IV 12/16/24 18:31 10 ml NEEDED PRN Administration Maintain IV Site Sodium Chloride 10 ml 11/16/24 18:33 Sodium Chloride 0.9% 10ml Syr (Rad Only) IV 12/16/24 18:32 NEEDED PRN Maintain IV Site Discontinued Medications Generic Name Dose Route Start Last Admin Trade Name Jailyn PRN Reason Stop Dose Admin Acetaminophen 1,000 mg 11/16/24 19:53 11/16/24 19:56 Acetaminophen 1,000mg/100ml Vial IV 11/16/24 19:54 1,000 mg ONCE ONE Administration Lactated Ringer's 1,000 mls @ 999 mls/hr 11/16/24 18:30 11/16/24 20:09 Lactated Ringer's 1000 Ml Bag IV 11/16/24 19:30 Infused .Q1H1M STEPAN Infusion Iopamidol 75 ml 11/16/24 18:32 11/16/24 18:34 Iopamidol-370 (76%);100ml Bottle IV 11/16/24 18:33 75 ml ONCE ONE Administration Iopamidol 75 ml 11/16/24 18:33 Iopamidol-370 (76%);100ml Bottle IV 11/16/24 18:34 ONCE ONE Morphine Sulfate 4 mg 11/16/24 18:23 11/16/24 18:46 Morphine 4mg/Ml Syringe IV 11/16/24 18:24 4 mg ONCE ONE Administration Morphine Sulfate 4 mg 11/16/24 19:47 11/16/24 19:54 Morphine 4mg/Ml Syringe IV 11/16/24 19:48 Not Given ONCE ONE Ondansetron HCl 4 mg 11/16/24 18:23 11/16/24 18:46 Ondansetron 4mg/2ml Vial IV 11/16/24 18:24 4 mg ONCE ONE Administration ORDERS Category Date Time Status CT abdomen pelvis w con Stat Cat Scan 11/16/24 18:23 Completed Acute abdomen XR series [XR acute abdomen series] Stat Exams 11/16/24 15:44 Completed C-Reactive Protein Stat Lab 11/16/24 15:40 Completed Complete Blood Count Auto Diff Stat Lab 11/16/24 15:40 Completed Comprehensive Metabolic Panel Stat Lab 11/16/24 15:40 Completed Erythrocyte Sedimentation Rate Stat Lab 11/16/24 15:40 Completed HCG Qualitative, Serum Stat Lab 11/16/24 15:40 Completed Lipase Stat Lab 11/16/24 15:40 Completed Urinalysis and Microscopic Stat Lab 11/16/24 16:04 Completed Medical Decision Narrative: Patient with above history and physical differential includes hepatobiliary complications including common bile duct stone cholangitis pancreatitis and complications of Caden-en-Y bypass surgery such as ulcerations hernias etc. Patient had labs that were performed that returned with a concerning picture of a possible posthepatic obstruction with an elevated alkaline phosphatase total bilirubin of 2.0 AST of 131 these are all elevated out of proportion to what she has had in the past. Lipase is however normal. She could have [place] stone formation which could still require an ERCP or an MRCP which given her anatomy would be very difficult at this point. Will get a contrasted CT scan to further evaluate for this. Patient is quite tender in the epigastrium on my exam. Reassessment [address] scan unremarkable on my personal interpretation of radiology read. As discussed labs are concerning for possible obstructive pattern still concerned about common bile duct obstruction. Patient continued to have intermittent and severe abdominal discomfort in the emergency department. After numerous phone calls to [facility] where her surgical team is they decided that they are the only team in the [facility] that could handle this. Ultimately the patient was accepted by Dr. Potter speaking with Donna Araujo at [facility]. Family is agreeable to this plan. Critical Care Critical Care Time Critical Care Time: No
[2024-11-16] MEDS: LACTATED RINGERS 1000ML 1,000 ML 999 ML IV (18:46)
[2024-11-16] MEDS: MORPHINE 4MG/ML SYRINGE 4 MG IV (18:46)
[2024-11-16] MEDS: ONDANSETRON 4MG/2ML VIAL 4 MG IV (18:46)
[2024-11-16 18:48] VITALS: BP 137/72; PULSE 87; RESP 17; O2SAT 99
--- NOTE | 2024-11-16 19:13 | PC.NURSE ---
Called [facility] to possible pt transfer to [place]
[2024-11-16] MEDS: ACETAMINOPHEN 1,000MG/100ML VIAL 1000 MG IV (19:56)
--- NOTE | 2024-11-16 21:39 | PC.NURSE ---
Report given to MARY GRACE Oneill at [facility], made aware of pt coming POV.
[2024-11-16 21:55] VITALS: BP 122/80; PULSE 92; RESP 16; TEMP 37; O2SAT 94
== END 2024-11-16 21:56 | disposition other institution (70) ==
PROVIDERS: Emergency Provider Student in an Organized Health Care Education/Training Program; PCP Nurse Practitioner Family
DX: R10.13 Epigastric pain (principal); K80.50 Calculus of bile duct without cholangitis or cholecystitis without obstruction; Z98.84 Bariatric surgery status
CPT/HCPCS: 74021; 74177; 80053; 81001; 83690; 84703; 85025; 85651; 86140; 96361; 96374; 96375; 99284; 99285; J0131; J2270; J2405; J7120; Q9967

== ENCOUNTER 2024-12-01 09:39 | Outpatient (CLI) | payer BC, SELFPAY ==
--- OUTSIDE RECORDS SUMMARY | 2023-07-14 07:30 | XMS_ITS ---
Author Organization [facility] Address [address] [place] [address] Care Team Providers Care Stock Sorter Name Role Phone Carmela Caban [facility] [phone] Results Component Value Reference Range Notes *US Pelvis Complete Transabd ominal/Vaginal (Non-OB) Reviewed date:07/14/2023 02:08:31 PM Interpretation: Performing Lab: Notes/Report: [facility] Transvaginal Pelvic Study Report Name: MELECIO WALL Accession/Encounter No:[id number] : 1975 Age: 47 Gender: F Study Date: July 14, 2023 Study Time: 11:26 AM Reading Group: Carmela Caban MD Referring Group: Carmela Caban MD Ordering Phys: Carmela Caban MD Licensed Weigher: Tamika Nair RDMS Equipment: Affiniti 30 Study [...] 1 of 1 Imaging Center - , [facility] - Jennifer Lorenzana REASON FOR VISIT Antonieta pt-heavy and painful menses, hx endometriosis Encounters Encounter Location Date Provider Diagnosis [facility]- [address] [place] [address] 07/14/2023 Carmela Caban Menorrhagia, premenopausal N92.4 Assessments Encounter Date Diagnosis (ICD Code) Assessment Notes Treatment Notes Treatment Clinical Notes Section Notes 07/14/2023 Menorrhagia, premenopausal (ICD-10 - N92.4) Plan Of Treatment No Information Progress Notes * Melecio WALLDOB:1975 (48 yo F)Acc No.[id number]:07/14/2023 Progress Note Patient: Melecio Zhang Provider: Darell Caban MD :1975 A ge:47 Y S ex:Female Date:07/14/2023 Address:[address] [place] [address] [place], [id number] Subjective: * Chief Complaints: * G uiler pt-heavy and painful menses, hx endometriosis Assessment: * Assessment: 1. M enorrhagia, premenopausal - N92.4 Plan: * Treatment: Billing Information: * Procedure Codes: * Electronic signature of Hoa Caban MD on 12/01/2024 at 09:49 AM EDT Sign off status: Pending Visit Status: Mariana FULTON (Check Out) * Provider: Darell Caban MD Date: 0 07/14/2023 Generated for Leon reynaga/Saleem/Tayloritting on: 0 12/01/2024 09:49 AM EDT
--- OUTSIDE RECORDS SUMMARY | 2024-12-01 09:49 | XMS_ITS | Encounter Summary ---
Author Organization [facility] ([place], [place], [place], [place]) Address [address] [place] [address] Care Team Providers Care Asbestos Handler Name Role Phone Unavailable Primary Care Provider Unavailabl e Encounter Details Date Type Department Care Team (Late st Contact Info) Description 04/13/2018 Transcribed Document [facility] [place] [address] [place] [address] ProviderNatalie MD [address] [place] [address] Social History Tobacco Use Types Packs/Day Years Used Date Smoking Tobacco: Never Assessed Comments Unknown Sex and Gender Information Value Date Recorded Sex Assigned at Not on file Legal Sex Female 5:41 PM CDT Gender Identity Not on file Sexual Orientation Not on file documented as of this encounter Miscellaneous Notes * Cerner Conversion Note - Natalie ProviderMD - 04/13/2018 12:06 PM COMMUNITY PRODUCT SPECIALIST ED Assessment Entered On: 04/13/2018 14:46 EST Performed On: 04/13/2018 12:30 EST by Mansi Barrientos Rn ED Quick Look Assessment Level of Consciousness : Awake Affect/Behavior : Cooperative Orientation : Oriented x 4 Skin Temperature : Warm Mansi Barrientos Rn - 04/13/2018 14:41 EST ED General-Functional Assess Preferred Communication Mode : Verbal Communication Barrier : None Primary Language : Macedonian Any Spiritual/Cultural Needs or Requests : No Currently in Unsafe Situation : No Mansi Barrientos Rn - 04/13/2018 14:41 EST Social Habits Smoking Status : 10 or more cigarettes (1/2 pack or more)/day in last 30 days Smokeless Tobacco Status : Refused tobacco status screen Desires Tobacco Cessation Medication : No Reason for No Tobacco Cessation Medication : ED/procedural patient only Desires Tobacco Cessation Calc : 1 Mansi Barrientos Rn - 04/13/2018 14:41 EST Social History (As Of: 04/13/2018 14:46:55 EST) Tobacco: Smoking Status Current every day smoker. Years of Use: 15. Packs/Tins Daily: 0.5. (Last Updated: 11/04/2015 08:46:52 EDT by MARGE DILLON, MARY GRACE) Alcohol: Alcohol Use History No. (Last Updated: 11/04/2015 08:46:58 EDT by MARGE DILLON, MARY GRACE) Substance Abuse: Drug Use Hx: No. Use in Last 12 Months: No. (Last Updated: 11/04/2015 08:47:03 EDT by MARGE DILLON, MARY GRACE) Nutrition/Health: Caffeine intake amount: 3 cups a day.. (Last Updated: 11/04/2015 08:47:20 EDT by MARGE DILLON RN) Cardiovascular ASMT, ED Cardiovascular Assessment WDL : WDL with exceptions Cardiovascular Symptoms : Other: hypertension Heart Rhythm : [facility], Mansi Philip Rn - 04/13/2018 14:41 EST Electronically signed by [place] Conversion Acute Care Certified Nursing Assistant Cerner at 06/28/2022 4:51 PM CDT documented in this encounter Plan of Treatment Not on file documented as of this encounter Visit Diagnoses Not on filedocumented in this encounter
--- OUTSIDE RECORDS SUMMARY | 2024-12-01 09:49 | XMS_ITS | Clinical Summary ---
Author Organization [facility] Address [address] [place] [address] Care Team Providers Care Hand Folder Name Role Phone Dung Huntley MD Primary Care Provider [phone] Allergies Active Allergy Reactions Criticality Noted Date [...] e 12/20/2022 Family and Community Support Answer Shady e Recorded Help with Day-to-Day Activities Not [...] TEST 2021 FIT Testing (1 year) 2021 INFLUENZA VACCINE 10/12/2024 Pneumococcal Vaccine 0-49 Aged Out No longer eligible based on patient's age to complete this topic Insurance [facility] PPO Care Teams Hand Folder Relationship Specialty Start Date End Date Dung Huntley MD [address] [place] [address] PCP - General Adolescent Medicine 07/02/20
--- OUTSIDE RECORDS SUMMARY | 2024-12-01 09:49 | XMS_ITS | Clinical Summary ---
Author Organization [facility] ([place], [place], [place], [place]) Address [address] [place] [address] Care Team Providers Care Gold Leaf Gilder Name Role Phone Unavailable Primary Care Provider Unavailabl e Social History Tobacco Use Types Packs/Day Years Used Date Smoking Tobacco: Never Assessed Comments Unknown Sex and Gender Information Value Date Recorded Sex Assigned at Not on file Legal Sex Female 5:41 PM CDT Gender Identity Not on file Sexual Orientation Not on file Plan of Treatment Not on file
--- OUTSIDE RECORDS SUMMARY | 2024-12-01 09:49 | XMS_ITS | Referral Summary ---
Author Organization [facility] ([place], [place], [place], [place]) Address [address] [place] [address] Care Team Providers Care Etl Data Architect Name Role Phone Unavailable Primary Care Provider [...]
--- OUTSIDE RECORDS SUMMARY | 2024-12-01 09:49 | XMS_ITS | Encounter Summary ---
Author Organization [facility] ([place], [place], [place], [place]) Address [address] [place] [address] Care Team Providers Care Employment Supervisor Name Role Phone Unavailable Primary Care Provider Unavailabl e Encounter Details Date Type Department Care Team (Late st Contact Info) Description 04/13/2018 Transcribed Document [facility] Family Medicine [address] [place] [address] ProviderNatalie MD [address] [place] [address] Social History Tobacco Use Types [...] - Natalie ProviderMD - 04/13/2018 12:06 PM [facility] ED Triage Entered On: 04/13/2018 12:31 EST Performed On: 04/13/2018 12:25 EST by AMANDA CABALLERO, SUPERVISOR [employer] Triage Across the Room ED Triage Treatments : Document AMANDA CABALLERO RN - 04/13/2018 12:55 EST Triage Date/Time : 04/13/2018 12:25 EST AMANDA CABALLERO RN - 04/13/2018 12:25 EST Chief Complaint : pt c/o bp high, vision people are disorted, seeing double with a headache. pt states bp was super high when checked at work. pt balance steady, a&O x3, pt neurovascular intact AMANDA CABALLERO RN - 04/13/2018 12:36 EST AMANDA CABALLERO RN - 04/13/2018 12:36 EST DCP GENERIC CODE Tracking Group : [facility] Tracking Acuity : 2 - Emergent AMANDA CABALLERO RN - 04/13/2018 12:25 EST Mode of Arrival : Ambulatory Transported to ED by : Walk in To Room Via : Ambulate Accompanied By : Son ED Vital Signs : Document Height & Weight : Document ED Allergies : Document ED Reason for Visit : Document AMANDA CABALLERO RN - 04/13/2018 12:25 EST Infectious Disease History Infectious Disease History : Chicken pox/Shingles, Influenza Fever/Chills Last 48 Hours : No Travel To Regions with Travel Advisories : No Travel Outside [place] Within Last 30 Days : No Contact With Traveler to Advisory Region : No Tuberculosis Symptoms : None AMANDA CABALLERO RN - 04/13/2018 12:25 EST Vital Signs ED Temperature Mode : Fahrenheit Temperature, Fahrenheit : 97.8 Deg F ED Pain : Yes Clinical Temperature, C : 36.6 Deg C Peripheral Pulse Rate : 98 bpm Respiratory Rate : 16 Breaths/Min Systolic Blood Pressure : 148 mmHg (HI) Diastolic Blood Pressure : 84 mmHg Oxygen Saturation : 98 % AMANDA CABALLERO RN - 04/13/2018 12:25 EST Allergy (As Of: 04/13/2018 12:31:04 EST) Allergies (Active) penicillin Estimated Onset Date: Unspecified ; Created By: Shamar Maharaj RN; Reaction Status: Active ; Category: Drug ; Substance: penicillin ; Type: Allergy ; Updated By: Shamar Maharaj RN; Reviewed Date: 04/13/2018 12:29 EST Diagnosis Control ED (As Of: 04/13/2018 12:31:04 EST) Problems(Active) Abdominal pain (SNOMED CT :68812389 ) Name of Problem: Abdominal pain ; Recorder: MARGE DILLON RN; Confirmation: Confirmed ; Classification: Medical ; Code: [id number] ; Contributor System: PowerChart ; Last Updated: 11/04/2015 8:43 EDT ; Life Cycle Date: 11/04/2015 ; Life Cycle Status: Active ; Vocabulary: SNOMED CT Endometriosis (SNOMED CT :234020212 ) Name of Problem: Endometriosis ; Recorder: Shamar Maharaj RN; Confirmation: Confirmed ; Classification: Medical ; Code: [id number] ; Contributor System: PowerChart ; Last Updated: 08/18/2015 17:40 EDT ; Life Cycle Date: 08/18/2015 ; Life Cycle Status: Active ; Vocabulary: SNOMED CT HTN (hypertension) (SNOMED CT :2722723898 ) Name of Problem: HTN (hypertension) ; Recorder: AMANDA CABALLERO RN; Confirmation: Confirmed ; Classification: Medical ; Code: [id number] ; Contributor System: [employer] ; Last Updated: 04/13/2018 12:30 EST ; Life Cycle Date: 04/13/2018 ; Life Cycle Status: Active ; Vocabulary: SNOMED CT Diagnoses(Active) HTN - Hypertension Date: 04/13/2018 ; Diagnosis Type: Reason For Visit ; Confirmation: Complaint of ; Clinical Dx: HTN - Hypertension ; Classification: Medical ; Clinical Service: Emergency medicine ; Code: PNED ; Probability: 0 ; Diagnosis Code: [id number] ED Height and Weight Height Source : Measured Height Entry Format : [place] Height, Feet : 5 ft(Converted to: 152 cm, 60 Inch) Height, Inches : 4 Inch(Converted to: 0 ft 4 Inch, 10.16 cm) Clinical Height : 162.56 cm Weight Source, ED : Standing scale Weight Entry Format : [place] Weight, Pounds : 240 lb Clinical Dosing Weight : 109.09 kg Body Surface Area (BSA) : 2.12 m2 Body Mass Index : 41.3 kg/m2 (>HHI) [place] Body Weight (IBW) : 54.3 kg AMANDA CABALLERO RN - 04/13/2018 12:25 EST Pain Assessment Pain Scale Used : 0-10 Scale AMANDA CABALLERO RN - 04/13/2018 12:25 EST Pain Scale Intensity : 6 AMANDA CABALLERO RN - 04/13/2018 12:25 EST Image 4 - Images currently included in the form version of this document have not been included in the text rendition version of the form. Triage Initial Exam and Interventions, ED Level of Consciousness : Alert, Awake Affect/Behavior : Appropriate, Calm, Cooperative Orientation : Oriented x 4 Skin Temperature : Warm Skin Description : Dry Triage Interventions : Other: labs AMANDA CABALLERO RN - 04/13/2018 12:55 EST Electronically signed by Aleksandra [facility] Conversion Sawmill Hand Cerner at 06/28/2022 4:45 PM CDT documented in this encounter Plan of Treatment Not on file documented as of this encounter Visit Diagnoses Not on filedocumented in this encounter
--- OUTSIDE RECORDS SUMMARY | 2024-12-01 09:49 | XMS_ITS | Encounter Summary ---
Author Organization [employer] ([place], [place], [place], [place]) Address [address] [place] [address] Care Team Providers Care Demolitionist Name Role Phone Unavailable Primary Care Provider Unavailabl e Encounter Details Date Type Department Care Team (Late st Contact Info) Description 04/13/2018 Transcribed Document [facility] Family Medicine [address] [place] [address] ProviderNatalie MD [address] [place] [address] Social History Tobacco Use Types Packs/Day Years Used Date Smoking Tobacco: Never Assessed Comments Unknown Sex and Gender Information Value Date Recorded Sex Assigned at Not on file Legal Sex Female 5:41 PM CDT Gender Identity Not on file Sexual Orientation Not on file documented as of this encounter Miscellaneous Notes * Cerner Conversion Note - Natalie Fink MD - 04/13/2018 1:07 PM BAFFLE MOUNTER Patient: MELECIO WALL Age: 42 years Sex: Female : 1975 Associated Diagnoses: Acute headache; Uncontrolled hypertension Author: RAYMUNDO SMITH MD-EMR Basic Information Time seen: Date & time 04/13/2018 13:08:00, Voice recognition / director client technology was used for some documentation in this chart in an attempt to mitigate substantial inefficiencies created by this electronic health record technology. As a result, there may be some typos and/or non-sensical language introduced into the chart that either are overlooked in editing/review and/or that I am unable to correct because patient care needs require me to prioritize my attention to bedside patient care rather than electronic documentation.. History source: Patient. Arrival mode: Private vehicle. History limitation: None. Additional information: Chief Complaint from Nursing Triage Note : Chief Complaint 04/13/2018 12:25 EST Chief Complaint pt c/o bp high, vision people are disorted, seeing double with a headache. pt states bp was super high when checked at work. pt balance steady, a&O x3, pt neurovascular intact (Modified) . History of Present Illness 42-year-old female comes to the emergency department with complaint of headache and hypertension and also some double vision. She says she woke up and felt fine. She says that at about 8:30 she was at work and noticed that she was starting to have a headache. The headache came on mildly and progressed over a couple hours. It progressed to the point that at about 10:30 in the morning it was quite substantial and she noticed her vision seemed to be off. She describes it as double vision but when she discusses that it sounds more like blurry vision. She's not had problems like this in the past. She is not diabetic, but she does have hypertension. She usually takes her medication for this when she goes to work. She says she did eventually take it this morning while at work. Apparently her blood pressure was approximately 146/110 and when they noted it to be this high at work they told her she should go to the ER for evaluation. She's not having any confusion. No difficulty with expressive or receptive communication. No numbness, tingling, or weakness in her arms or legs. No other acute neurologic complaints. She has a primary care provider and has routine laboratory testing all of which she says is generally okay. Review of Systems Constitutional symptoms: Negative except as documented in HPI. Skin symptoms: Negative except as documented in HPI. Eye symptoms: Blurred vision. ENMT symptoms: Negative except as documented in HPI. Respiratory symptoms: No shortness of breath, Cardiovascular symptoms: No chest pain, Gastrointestinal symptoms: No abdominal pain, Genitourinary symptoms: Negative except as documented in HPI. Musculoskeletal symptoms: Negative except as documented in HPI. Neurologic symptoms: Headache, no altered level of consciousness, no numbness, no tingling. Psychiatric symptoms: Negative except as documented in HPI. Additional review of systems information: All other systems reviewed and otherwise negative. Health Status Allergies: Allergic Reactions (Selected) Severity Not Documented Penicillin- No reactions were documented.. Medications: (Selected) Prescriptions Prescribed Carafate 1 g/10 mL oral suspension: 10 mL, Oral, TID, for 30 Day(s), 900 mL, 11 Refill(s) Cytotec 100 mcg oral tablet: 1 Tab, Oral, TID, 90 Tab, 11 Refill(s). Past Medical/ Family/ Social History Medical history Cardiovascular: hypertension. See problem list below which I have reviewed.. Surgical history: Gastric Bypass. delivery only; (CPT4 48961). Comments: 11/04/2015 08:44 - MARGE DILLON, RN x2 Tubal Ligation. Cholecystectomy; (CPT4 16790)., Reviewed as documented in chart. Family history: Not significant. Social history: Social & Psychosocial Habits Alcohol 11/04/2015 Alcohol Use History, Social Habits No Nutrition/Health 11/04/2015 Caffeine intake amount: 3 cups a day. Substance Abuse 11/04/2015 Recreational Drug Use History No Recreational Drug Use Last 12 Months No Tobacco 11/04/2015 Smoking Status Current every day smoker Years of Tobacco Use 15 Packs/Tins Daily 0.5 , Reviewed as documented in chart. Problem list: Active Problems (3) Abdominal pain Endometriosis HTN (hypertension) , per nurse's notes. Physical Examination Vital Signs Vital Signs/Vital Measures 04/13/2018 12:25 EST Temperature Mode Fahrenheit Temperature, Fahrenheit 97.8 Deg F Clinical Temperature, C 36.6 Deg C Peripheral Pulse Rate 98 bpm Respiratory Rate 16 Breaths/Min Systolic Blood Pressure 148 mmHg HI Diastolic Blood Pressure 84 mmHg Oxygen Saturation 98 % . Measurements 04/13/2018 12:25 EST Height Source Measured Height Entry Format [place] Height/Length, [place] (ft) 5 ft Height/Length [place] 4 Inch CLINICALHEIGHT 162.56 cm [place] Body Weight 54.3 kg Weight Source, ED Standing scale Weight Entry Format [place] Weight [place] lb 240 lb CLINICALWEIGHT 109.09 kg Body Surface Area (BSA) 2.12 m2 Body Mass Index 41.3 kg/m2 >HHI . General: Alert, no acute distress. Skin: Warm, dry. Head: Normocephalic, atraumatic. Neck: Supple, trachea midline. Eye: Pupils are equal, round and reactive to light, extraocular movements are intact. Cardiovascular: Regular rate and rhythm, Normal peripheral perfusion. Respiratory: Lungs are clear to auscultation, respirations are non-labored, breath sounds are equal. Gastrointestinal: Soft, Nontender, Non distended. Musculoskeletal: Normal ROM. Neurological: Alert and oriented to person, place, time, and situation, No focal neurological deficit observed, normal motor observed, normal speech observed. Psychiatric: Cooperative, appropriate mood & affect. Medical Decision Making Differential Diagnosis: Uncontrolled hypertension, headache. Rationale: 1329 - I think that since the symptoms are pretty unusual for her that doing a CT scan of her brain is reasonable, particularly since her blood pressure of 149/110, all high in the diastolic, is not particularly distressing. I will give a little Motrin to see if it helps with her headache as well. She is okay with this plan.. Documents reviewed: Emergency department nurses' notes. Results review: Lab results : Lab Results 04/13/2018 12:33 EST Sodium Level 135 mmol/L LOW Potassium Level 4.3 mmol/L Chloride Level 102 mmol/L Carbon Dioxide Level 25 mmol/L Anion Gap 12 Glucose Level 93 mg/dL Blood Urea Nitrogen 17 mg/dL Creatinine Level 0.56 mg/dL eGFR >60 mL/min/1.73m2 eGFR NonAfrican >60 mL/min/1.73m2 Bun/Creatinine 30.4 HI Calcium Level 8.7 mg/dL Protein Total 7.1 Gram/dL Albumin Level 3.7 Gram/dL Globulin 3.4 Gram/dL A/G Ratio 1.1 Bilirubin Total 0.3 mg/dL Alk Phos 48 Units/Liter AST 15 Units/Liter ALT 21 Units/Liter WBC 11.9 K/uL HI RBC 4.73 Million/uL Hgb 14.0 Gram/dL Hct 43.3 % MCV 91.5 fL MCH 29.6 pg MCHC 32.3 Gram/dL Platelet Count 385 K/uL HI MPV 10.7 fL RDW 13.5 % Neut % 64.5 % Neut # 7.66 K/uL HI Lymph % 29.3 % Lymph # 3.47 K/uL [place] % 3.8 % LOW [place] # 0.45 K/uL Eos % 1.6 % Eos # 0.19 K/uL Baso % 0.5 % Baso # 0.06 K/uL Slide Review No IG# 0 x10(3)/uL IG% 0 % . Radiology results: Radiology Results (Last 48 hours) [id number] -- 04/13/2018 12:06 CT Head WO (04/13/2018 13:51) Result: CT HEAD WITHOUT CONTRASTHISTORY: Headache, hypertensionTECHNIQUE: Thin-section axial images of the brain were performed withoutcontrast. This study was performed with techniques to keep radiationdoses as low as reasonably achievable, (ALARA). Individualized dosereduction techniques using automated exposure control or adjustment ofmA and/or kV according to the patient size were employed.COMPARISON: NoneFINDINGS: Bone windows demonstrate no fractures or other abnormalities.The visualized paranasal sinuses and mastoid air cells demonstratelobular right maxillary mucosal thickening. There is ethmoidal mucosalthickening on the left. The mastoids are clear. The visualized orbitsand globes are unremarkable. The brainstem and posterior fossa areunremarkable. There is no edema, hemorrhage, or mass. The ventriclesand basal cisterns are unremarkable.IMPRESSION: No acute intracranial abnormalities.Mild]/and left ethmoidal chronic sinusitis. . Reexamination/ Reevaluation 1439 - Feels much better, just like a mild tension GONSALVES now, she reports. 112/65. CT NAD. Basic labs ok. I advised rest today and f/u with PCP next week. Patient and her significant other ok with plan. Impression and Plan Diagnosis Acute headache - Discharge, Emergency medicine, Medical Uncontrolled hypertension - Discharge, Emergency medicine, Medical Plan Condition: Improved, Stable. Disposition: Medically cleared, Discharged Admit/Transfer/Discharge: Discharge (Order): Start: 04/13/2018 14:43 EST, Discharge to: Home. Patient was given the following educational materials: General Headache Without Cause, Hypertension. Follow up with: RADHA LILLY Within 1 week Please take these papers and the attached test reports to see your primary care provider for recheck next week. If you have mild, lingering headache please use tylenol and/or motrin as instructed on the bottle. I hope you feel better soon. Dr. Smith. Counseled: Patient, Regarding diagnosis, Regarding diagnostic results, Regarding treatment plan, Regarding prescription, Patient indicated understanding of instructions. documented in this encounter Plan of Treatment Not on file documented as of this encounter Visit Diagnoses Not on filedocumented in this encounter
--- OUTSIDE RECORDS SUMMARY | 2024-12-01 09:49 | XMS_ITS | Encounter Summary ---
Author Organization [employer] ([place], [place], [place], [place]) Address [address] [place] [address] Care Team Providers Care Frame Table Operator Name Role Phone Unavailable Primary Care Provider Unavailabl e Encounter Details Date Type Department Care Team (Late st Contact Info) Description 04/13/2018 Transcribed Document [facility] [address] [place] [address] ProviderNatalie MD [address] [place] [address] Social History Tobacco Use Types Packs/Day Years Used Date Smoking Tobacco: Never Assessed Comments Unknown Sex and Gender Information Value Date Recorded Sex Assigned at Not on file Legal Sex Female 5:41 PM CDT Gender Identity Not on file Sexual Orientation Not on file documented as of this encounter Miscellaneous Notes * Cerner Conversion Note - Natalie ProviderMD - 04/13/2018 2:56 PM RIVER CAPTAIN [address] [place] [address] Patient Information Name: MELECIO WALL Age: 42 Years Date of : 1975 Arrival Time: 04/13/2018 12:06:00 Diagnosis Acute headache; Uncontrolled hypertension Primary Care Physician: RADHA LILLY (REF)MD-[facility] Provider Information Primary Provider: RAYMUNDO SMITH Secondary Provider: MELECIO WALL has been given the following list of patient education materials, prescriptions and follow-up instructions: Follow-up Instructions: With: Address: When: RADHA LILLY [address] [place] [id number] Business (1) Within 1 week Comments: Please take these papers and the attached test reports to see your primary care provider for recheck next week. If you have mild, lingering headache please use tylenol and/or motrin as instructed on the bottle. I hope you feel better soon. Dr. Smith Patient Education Materials: Hypertension Hypertension, commonly called high blood pressure, is when the force of blood pumping through your arteries is too strong. Your arteries are the blood vessels that carry blood from your heart throughout your body. A blood pressure reading consists of a higher number over a lower number, such as 110/72. The higher number (systolic) is the pressure inside your arteries when your heart pumps. The lower number (diastolic) is the pressure inside your arteries when your heart relaxes. Ideally you want your blood pressure below 120/80. Hypertension forces your heart to work harder to pump blood. Your arteries may become narrow or stiff. Having untreated or uncontrolled hypertension can cause heart attack, stroke, kidney disease, and other problems. What increases the risk? Some risk factors for high blood pressure are controllable. Others are not. Risk factors you cannot control include: ??? Race. You may be at higher risk if you are . ??? Age. Risk increases with age. ??? Gender. Men are at higher risk than women before age 45 years. After age 65, women are at higher risk than men. Risk factors you can control include: ??? Not getting enough exercise or physical activity. ??? Being overweight. ??? Getting too much fat, sugar, calories, or salt in your diet. ??? Drinking too much alcohol. What are the signs or symptoms? Hypertension does not usually cause signs or symptoms. Extremely high blood pressure (hypertensive crisis) may cause headache, anxiety, shortness of breath, and nosebleed. How is this diagnosed? To check if you have hypertension, your health care provider will measure your blood pressure while you are seated, with your arm held at the level of your heart. It should be measured at least twice using the same arm. Certain conditions can cause a difference in blood pressure between your right and left arms. A blood pressure reading that is higher than normal on one occasion does not mean that you need treatment. If it is not clear whether you have high blood pressure, you may be asked to return on a different day to have your blood pressure checked again. Or, you may be asked to monitor your blood pressure at home for 1 or more weeks. How is this treated? Treating high blood pressure includes making lifestyle changes and possibly taking medicine. Living a healthy lifestyle can help lower high blood pressure. You may need to change some of your habits. Lifestyle changes may include: ??? Following the DASH diet. This diet is high in fruits, vegetables, and whole grains. It is low in salt, red meat, and added sugars. ??? Keep your sodium intake below 2,300 mg per day. ??? Getting at least 30?45 minutes of aerobic exercise at least 4 times per week. ??? Losing weight if necessary. ??? Not smoking. ??? Limiting alcoholic beverages. ??? Learning ways to reduce stress. Your health care provider may prescribe medicine if lifestyle changes are not enough to get your blood pressure under control, and if one of the following is true: ??? You are 18?59 years of age and your systolic blood pressure is above 140. ??? You are 60 years of age or older, and your systolic blood pressure is above 150. ??? Your diastolic blood pressure is above 90. ??? You have diabetes, and your systolic blood pressure is over 140 or your diastolic blood pressure is over 90. ??? You have kidney disease and your blood pressure is above 140/90. ??? You have heart disease and your blood pressure is above 140/90. Your personal target blood pressure may vary depending on your medical conditions, your age, and other factors. Follow these instructions at home: ??? Have your blood pressure rechecked as directed by your health care provider. ??? Take medicines only as directed by your health care provider. Follow the directions carefully. Blood pressure medicines must be taken as prescribed. The medicine does not work as well when you skip doses. Skipping doses also puts you at risk for problems. ??? Do notsmoke. ??? Monitor your blood pressure at home as directed by your health care provider. Contact a health care provider if: ??? You think you are having a reaction to medicines taken. ??? You have recurrent headaches or feel dizzy. ??? You have swelling in your ankles. ??? You have trouble with your vision. Get help right away if: ??? You develop a severe headache or confusion. ??? You have unusual weakness, numbness, or feel faint. ??? You have severe chest or abdominal pain. ??? You vomit repeatedly. ??? You have trouble breathing. This information is not intended to replace advice given to you by your health care provider. Make sure you discuss any questions you have with your health care provider. Document Released: 02/28/2006 Document Revised: 08/05/2016 Document Reviewed: 12/21/2013 [employer] Interactive Patient Education ? 2017 [employer] General Headache Without Cause A headache is pain or discomfort felt around the head or neck area. The specific cause of a headache may not be found. There are many causes and types of headaches. A few common ones are: ??? Tension headaches. ??? Migraine headaches. ??? Cluster headaches. ??? Chronic daily headaches. Follow these instructions at home: Watch your condition for any changes. Take these steps to help with your condition: Managing pain ??? Take cgst-oci-sqsbjlk and prescription medicines only as told by your health care provider. ??? Lie down in a dark, quiet room when you have a headache. ??? If directed, apply ice to the head and neck area: ? Put ice in a plastic bag. ? Place a towel between your skin and the bag. ? Leave the ice on for 20 minutes, 2?3 times per day. ??? Use a heating pad or hot shower to apply heat to the head and neck area as told by your health care provider. ??? Keep lights dim if bright lights bother you or make your headaches worse. Eating and drinking ??? Eat meals on a regular schedule. ??? Limit alcohol use. ??? Decrease the amount of caffeine you drink, or stop drinking caffeine. General instructions ??? Keep all follow-up visits as told by your health care provider. This is important. ??? Keep a headache journal to help find out what may trigger your headaches. For example, write down: ? What you eat and drink. ? How much sleep you get. ? Any change to your diet or medicines. ??? Try massage or other relaxation techniques. ??? Limit stress. ??? Sit up straight, and do not tense your muscles. ??? Do notuse tobacco products, including cigarettes, chewing tobacco, or e-cigarettes. If you need help quitting, ask your health care provider. ??? Exercise regularly as told by your health care provider. ??? Sleep on a regular schedule. Get 7?9 hours of sleep, or the amount recommended by your health care provider. Contact a health care provider if: ??? Your symptoms are not helped by medicine. ??? You have a headache that is different from the usual headache. ??? You have nausea or you vomit. ??? You have a fever. Get help right away if: ??? Your headache becomes severe. ??? You have repeated vomiting. ??? You have a stiff neck. ??? You have a loss of vision. ??? You have problems with speech. ??? You have pain in the eye or ear. ??? You have muscular weakness or loss of muscle control. ??? You lose your balance or have trouble walking. ??? You feel faint or pass out. ??? You have confusion. This information is not intended to replace advice given to you by your health care provider. Make sure you discuss any questions you have with your health care provider. Document Released: 02/28/2006 Document Revised: 08/05/2016 Document Reviewed: 06/23/2015 [employer] Interactive Patient Education ? 2017 [employer] Allergies: penicillin Medication Information: Laboratory or Other Results This Visit (last charted value for your 04/13/2018 visit) Hematology 04/13/18 12:33:00 WBC: 11.9 K/uL -- Normal range between ( 3.9 and 10.0 ) RBC: 4.73 Million/uL -- Normal range between ( 3.93 and 5.22 ) Hct: 43.3 % -- Normal range between ( 34.1 and 44.9 ) Hgb: 14.0 Gram/dL -- Normal range between ( 11.2 and 15.7 ) Platelet Count: 385 K/uL -- Normal range between ( 163 and 369 ) MCH: 29.6 pg -- Normal range between ( 25.6 and 32.2 ) MCHC: 32.3 Gram/dL -- Normal range between ( 32.3 and 36.5 ) MCV: 91.5 fL -- Normal range between ( 79.0 and 94.8 ) Slide Review: No Eos %: 1.6 % -- Normal range between ( 1.0 and 7.0 ) Garrett #: 0.45 K/uL -- Normal range between ( 0.24 and 0.82 ) Eos #: 0.19 K/uL -- Normal range between ( 0.04 and 0.54 ) Garrett %: 3.8 % -- Normal range between ( 4.7 and 12.5 ) Baso %: 0.5 % -- Normal range between ( 0.0 and 1.0 ) Baso #: 0.06 K/uL -- Normal range between ( 0.01 and 0.08 ) RDW: 13.5 % -- Normal range between ( 11.6 and 14.4 ) Neut %: 64.5 % -- Normal range between ( 34.0 and 71.0 ) Neut #: 7.66 K/uL -- Normal range between ( 1.56 and 6.13 ) Lymph %: 29.3 % -- Normal range between ( 19.3 and 53.0 ) Lymph #: 3.47 K/uL -- Normal range between ( 1.18 and 3.74 ) MPV: 10.7 fL -- Normal range between ( 9.4 and 12.4 ) IG#: 0 x10(3)/uL IG%: 0 % -- Normal range between ( 0 and 1 ) General Chemistry 04/13/18 12:33:00 Creatinine Level: 0.56 mg/dL -- Normal range between ( 0.55 and 1.02 ) Sodium Level: 135 mmol/L -- Normal range between ( 136 and 146 ) Potassium Level: 4.3 mmol/L -- Normal range between ( 3.5 and 5.1 ) Chloride Level: 102 mmol/L -- Normal range between ( 102 and 112 ) Carbon Dioxide Level: 25 mmol/L -- Normal range between ( 21 and 32 ) Anion Gap: 12 -- Normal range between ( 9 and 20 ) Bilirubin Total: 0.3 mg/dL -- Normal range between ( 0.2 and 1.3 ) A/G Ratio: 1.1 -- Normal range between ( 1.1 and 2.5 ) ALT: 21 Units/Liter -- Normal range between ( 12 and 78 ) AST: 15 Units/Liter -- Normal range between ( 5 and 37 ) Globulin: 3.4 Gram/dL -- Normal range between ( 1.5 and 4.5 ) Alk Phos: 48 Units/Liter -- Normal range between ( 27 and 136 ) Bun/Creatinine: 30.4 -- Normal range between ( 8.0 and 20.0 ) Calcium Level: 8.7 mg/dL -- Normal range between ( 8.5 and 10.1 ) eGFR : >60 mL/min/1.73m2 eGFR NonAfrican: >60 mL/min/1.73m2 Glucose Level: 93 mg/dL -- Normal range between ( 74 and 106 ) Blood Urea Nitrogen: 17 mg/dL -- Normal range between ( 7 and 22 ) Protein Total: 7.1 Gram/dL -- Normal range between ( 6.4 and 8.2 ) Albumin Level: 3.7 Gram/dL -- Normal range between ( 3.4 and 5.0 ) Computed Tomography 04/13/18 13:51:45 CT Head WO: CT Head WO Medication Comment: Procedures: Laboratory Orders Name Status AutoDiff Completed CBCD Completed CMP Completed Radiology Orders Name Status CT Head WO Completed Cardiology Orders No cardiology orders were placed. This statement is to verify that MELECIO WALL was seen at [facility] Emergency Department on ,04/13/2018 14:56:06. This is not a work excuse, if a work excuse was needed it will be in addition to this statement as a separate form. IMPORTANT: The examination and treatment you have received in the Emergency Department has been done to provide an appropriate evaluation and stabilizing treatment on an emergency basis only. Given the limited resources, it is not meant to be a substitute for complete medical care. The follow-up doctor you named will receive a copy of your records and all test reports. IT IS IMPORTANT THAT YOU SCHEDULE A FOLLOW-UP APPOINTMENT AND ARE RE-EVALUATED. You should report any new complaints, symptoms, or remaining problems at that time. IT IS IMPOSSIBLE FOR THE EMERGENCY DEPARTMENT TO RECOGNIZE AND TREAT ALL ELEMENTS OF INJURY OR ILLNESS IN A SINGLE VISIT. If you have been referred to a specialist physician, it means that we believe you may have a condition that requires the expertise of a specialist. KEEP IN MIND THAT THE SPECIALIST HAS HIS/HER OWN OFFICE POLICIES WHICH MAY REQUIRE PROPER INSURANCE OR PAYMENT UP FRONT BEFORE THE SPECIALIST WILL SEE YOU. It is your responsibility to call the specialist physician to make an appointment. We do not have the ability to identify specialists/physicians that work with specific insurance companies. Please be advised that all financial charges or billing practices are determined by that practice, not the hospital. If your insurance company requires that you see a specialist from their approved list, it is your responsibility to contact your insurance company to make those arrangements. It is also your responsibility to follow any other requirements of your insurance company necessary to obtain coverage for claims submitted. If you had special tests, such as EKG???s or X-rays, the interpretation of your tests given to you by the Emergency Dept. Physician is a preliminary report. Some fractures and illnesses fail to show up on preliminary tests. We will review them again within 24-48 hours. We will call you if there are any new suggestions. If your symptoms continue notify your physician. After you leave, you should follow the instructions below. In all events, you may obtain a copy of your Emergency Department visit from Medical Records. Please call to be directed to this department. We will bill your insurance; however, you are responsible today for any co-pay amounts. You will receive a separate bill for any services you may have received including: emergency, radiology, or pathology physicians. Please be sure we have an accurate contact phone number and address, should we need to call you for any reason. CIGARETTE SMOKING: The facts are clear; cigarette smoking will shorten your life. Smoking can cause many illnesses along the way. As a healthcare provider, [facility] recommends that you stop smoking. Assistance with quitting is available by contacting 1-001-ZDXIAnaquaNOW. This is a free resource providing counseling, support, and referral. Or you may contact your personal physician. As part of your treatment plan, your physician may have prescribed a limited course of a controlled substance. This medication may be given to help people with moderate or severe pain or for other medical conditions, but there are risks involved with treatment. Common side effects may include nausea, constipation, drowsiness, sweating, itching, dry mouth, and rash. More serious side effects may include cognitive and motor impairment, like problems with thinking, concentrating, alertness, and movement (e.g. slowed reflexes), and driving and operating heavy machinery can be dangerous. It is important for you to talk to your physician if you have these side effects or questions. These controlled substances can produce physical dependence and be habit-forming if taken for an extended period of time, which means that the body has gotten used to them and may experience withdrawal symptoms if they are abruptly stopped. Withdrawal symptoms can include runny nose, sweating, goose bumps, diarrhea, abdominal cramping, rapid heartbeat, difficulty sleeping, and nervousness. The home medications listed are only as accurate as the information you provided. Please continue taking all of your medications prescribed by your Primary Care Provider unless specifically told to change or discontinue the medication. Please direct any questions regarding your home medications to your Primary Care Provider. YOU ARE THE MOST IMPORTANT FACTOR IN YOUR RECOVERY. ?? Follow your instructions carefully ?? Take your medicines as prescribed ?? Most important, see a provider as discussed. If you do not have a provider, we can provide a list of clinics Confidential This message and accompanying documents are covered by [employer] Privacy Act 18 U.S.C. ???Sections 2065-7875,?? and contain information intended for the specified individual(s) only. This information is confidential. If you are not the intended recipient or an agent responsible for delivering it to the intended recipient, you are hereby notified that you have received the document in error and that any review, dissemination, copying, or the taking of any action based on the contents of this information is strictly prohibited. If you have received this communication in error, please notify us immediately by email, and delete the original message. 4 WAYS TO GET AHEAD OF SEPSIS SEPSIS is a MEDICAL EMERGENCY. Time matters! Infections put you and your family at risk for a life-threatening condition called sepsis. Sepsis is the body???s extreme response to an infection. It is life-threatening, and without timely treatment, sepsis can rapidly lead to tissue damage, organ failure, and . Sepsis happens when an infection you already have???in your skin, lungs, urinary tract or somewhere else???triggers a chain reaction throughout your body. 1 PREVENT INFECTIONS Take good care of chronic conditions. Talk to your doctor about getting the recommended vaccines. 2 PRACTICE GOOD HYGIENE Wash your hands frequently. Keep cuts or open sores clean and covered until they are healed. 3 KNOW THE SYMPTOMS Confusion or disorientation Shortness of breath High heart rate Fever, shivering, or feeling very cold Extreme pain or discomfort Clammy or sweaty skin 4 ACT FAST Get medical care IMMEDIATELY if you suspect sepsis or if you have an infection that???s not getting better or is getting worse. To learn more about sepsis and how to prevent infections, visit www.cdc.gov/sepsis. STROKE is an EMERGENCY Every Minute Counts ACT F.A.S.T! FACE ?? Facial droop ?? Uneven smile ARM ?? Arm numbness ?? Arm weakness SPEECH ?? Slurred speech ?? Difficulty speaking or understanding TIME ?? Call 911 and get to the hospital immediately Have the ambulance go to the nearest stroke center. STROKE Risk Factors High blood pressure High cholesterol Heart Disease Diabetes Smoking Heavy alcohol use Physical inactivity and obesity Atrial Fibrillation (irregular heartbeat) Family history of stroke Acknowledgment I hereby acknowledge receipt of these instructions and information above. I understand that I have received Emergency Treatment only which is not a substitute for complete medical care and acknowledge that all of my medical problems may not be known, identified, or treated prior to my release. I UNDERSTAND THE NEED TO ARRANGE FOLLOW-UP CARE WITH THE PHYSICIAN INDICATED. I UNDERSTAND THAT I SHOULD CONTACT MY PHYSICIAN IMMEDIATELY OR RETURN TO THE EMERGENCY DEPARTMENT IF MY CONDITION WORSENS, FAILS TO IMPROVE, OR NEW SYMPTOMS APPEAR. Vital Signs B/P PULSE RESP. RATE TEMPERATURE PULSE OX Signature of Emergency Provider Date / Time Signature of Emergency Nurse Date / Time Reminder: Be sure to sign up for the My [facility] patient portal, which gives you 04/10 access to your medical information ??? including these discharge instructions ??? using your computer, smartphone, or tablet. Just go to airpim to get started. Questions? Call . Acknowledgment I hereby acknowledge receipt of these instructions and information above. I understand that I have received Emergency Treatment only which is not a substitute for complete medical care and acknowledge that all of my medical problems may not be known, identified, or treated prior to my release. I UNDERSTAND THE NEED TO ARRANGE FOLLOW-UP CARE WITH THE PHYSICIAN INDICATED. I UNDERSTAND THAT I SHOULD CONTACT MY PHYSICIAN IMMEDIATELY OR RETURN TO THE EMERGENCY DEPARTMENT IF MY CONDITION WORSENS, FAILS TO IMPROVE, OR NEW SYMPTOMS APPEAR. Signature of Patient / Responsible Person Date / Time Please provide a telephone number where you can be reached. The best time to call is between: It is permissible to leave a message if no answer: Yes____ No____ Nurse Providing Instructions: Emergency Physician: documented in this encounter Plan of Treatment Not on file documented as of this encounter Visit Diagnoses Not on filedocumented in this encounter
--- OUTSIDE RECORDS SUMMARY | 2024-12-01 09:49 | XMS_ITS | Clinical Summary ---
Author Organization Healthcare Address [address] [place] [address] Care Team Providers Care Edge Cutting Machine Operator Name Role Phone Dung Huntley MD Primary Care Provider [phone] Family History Medical History Relation Name Comments [...] [facility]-HIV Screening 1975 [facility]-Hepatitis C Screening 1975 [facility]-/Child/Adol SDOH Screenings 1975 [facility]- SDOH Screenings 1994 [facility]-Adult SDOH Screenings 1994 [facility]-Hepatitis B Vaccines (1 of 3 - 19+ 3-dose series) 12/19/1995 [facility]-Pap Smear 1997 [facility]-Cervical Cancer Screening 2006 [facility]-HPV/Cotest 2006 CT Colonography 2021 Colonoscopy 2021 FIT-DNA 2021 FIT 2021 FOBT 2021 Sigmoidoscopy 2021 [facility]-Colorectal Cancer Screening 2021 [id number]-[id number]-30 Vaccine (1 - 20 24-25 season) 2024 [facility]-Influenza Vaccine (#1) 2024 [facility]-Zoster Vaccines (1 [...] age to complete this topic Care Teams Edge Cutting Machine Operator Relationship Specialty Start Date End Date Dung Huntley MD [address] [place] [address] [place] [id number] PCP - General 07/25/20
--- OUTSIDE RECORDS SUMMARY | 2024-12-01 09:49 | XMS_ITS | Encounter Summary ---
Author Organization [employer] ([place], [place], [place], [place]) Address [address] [place] [address] Care Team Providers Care Assistant Hvac Mechanic Name Role Phone Unavailable Primary Care Provider Unavailabl e Encounter Details Date Type Department Care Team (Late st Contact Info) Description 04/13/2018 Transcribed Document [facility] [place] Family Medicine [address] [place] [address] ProviderNatalie MD [address] [place] [address] Social History Tobacco Use Types [...] - Natalie ProviderMD - 04/13/2018 2:56 PM SURVEYOR ROD HELPER [address] [place] [address] PERSON INFORMATION Name MELECIO WALL Age 42 Years 1975 Sex Female Language Rwandan PCP RADHA LILLY (REF)[facility] Marital Status Med Service Emergency Medicine Acct# Arrival 04/13/2018 12:06:00 Visit Reason HTN - Hypertension; HIGH BLOOD PRESSURE HEADACHE Acuity 2 - Emergent LOS 000 02:50 Depart Date: 04/13/18 02:51 PM Address: [place] [id number] Comment: PROVIDER INFORMATION Provider Role Assigned Unassigned RAYMUNDO SMITH MD-[facility] ED Physician 04/13/2018 13:07:36 Mansi Barrientos Rn ED Nurse 04/13/2018 13:20:15 DIAGNOSIS Acute headache; Uncontrolled hypertension PHYS DOC NOTES VITALS INFORMATION Vital Sign Triage Latest Temp Source Temp Mode Fahrenheit Fahrenheit Temp Fahrenheit 97.8 Deg F 97.8 Deg F Temp Celsius 02 Sat 98 % 100 % Respiratory Rate 16 Breaths/Min 16 Breaths/Min Peripheral Pulse Rate 98 bpm 98 bpm Apical Heart Rate Blood Pressure 148 mmHg / 84 mmHg 112 mmHg / 65 mmHg Comment: MEDICAL INFORMATION Allergy Info: penicillin Medications: Comment: DISCHARGE INFORMATION Discharge Disposition: Home Discharge Location: PATIENT EDUCATION INFORMATION Instructions: Hypertension; General Headache Without Cause Follow up: With: Address: When: RADHA LILLY [address] [place] [address] [facility] (1) Within 1 week Comments: Please take these papers and the attached test reports to see your primary care provider for recheck next week. If you have mild, lingering headache please use tylenol and/or motrin as instructed on the bottle. I hope you feel better soon. Dr. Smith Comment: documented in this encounter Plan of Treatment Not on file documented as of this encounter Visit Diagnoses Not on filedocumented in this encounter
--- OUTSIDE RECORDS SUMMARY | 2024-12-01 09:49 | XMS_ITS | Encounter Summary ---
Author Organization [employer] ([place], [place]) Address [address] [place] [address] Care Team Providers Care Maintenance Assistant Name Role Phone Unavailable Primary Care Provider Unavailabl e Encounter Details Date Type Department Care Team (Late st Contact Info) Description 04/13/2018 Transcribed Document [facility] Family Medicine [address] [place] [address] ProviderNatalie MD [address] [place] [address] Social History Tobacco Use Types Packs/Day Years Used Date Smoking Tobacco: Never Assessed Comments Unknown Sex and Gender Information Value Date Recorded Sex Assigned at Not on file Legal Sex Female 5:41 PM CDT Gender Identity Not on file Sexual Orientation Not on file documented as of this encounter Miscellaneous Notes * [employer] Conversion Note - Historical ProviderMD - 04/13/2018 2:53 PM PHYSICAL THERAPY TECHNICIAN ED Discharge Entered On: 04/13/2018 14:55 EST Performed On: 04/13/2018 14:53 EST by Mansi Barrientos Software Performance Engineer Process Patient Disposition : Discharge Teaching Evaluation : Verbalizes understanding IV Discontinued : Not applicable Mansi Barrientos Rn - 04/13/2018 14:53 EST ED Discharge Discharge To : Home with ambulatory/outpatient follow-up Mode Of Departure : Ambulatory Accompanied By : Son Discharge Instructions Reviewed With, Opportunity For Questions Given : Patient Mansi Barrientos Rn - 04/13/2018 14:53 EST documented in this encounter Plan of Treatment Not on file documented as of this encounter Visit Diagnoses Not on filedocumented in this encounter
--- OUTSIDE RECORDS SUMMARY | 2024-12-01 09:49 | XMS_ITS | Encounter Summary ---
Author Organization [employer] ([place], [place], [place], [place]) Address [address] [place] [address] Care Team Providers Care Case Advocate Name Role Phone Unavailable Primary Care Provider Unavailabl e Encounter Details Date Type Department Care Team (Late st Contact Info) Description 04/13/2018 Transcribed Document [facility] [place] [address] [place] [address] ProviderNatalie MD [address] [place] [address] Social History Tobacco Use Types Packs/Day Years Used Date Smoking Tobacco: Never Assessed Comments Unknown Sex and Gender Information Value Date Recorded Sex Assigned at Not on file Legal Sex Female 5:41 PM CDT Gender Identity Not on file Sexual Orientation Not on file documented as of this encounter Miscellaneous Notes * [employer]ner Conversion Note - Historical ProviderMD - 04/13/2018 2:42 PM RN PEDIATRIC ICU Electronically signed by Aleksandra, [facility] Conversion Commissioning Editor [employer]ner at 06/28/2022 5:06 PM CDT documented in this encounter Plan of Treatment Not on file documented as of this encounter Visit Diagnoses Not on filedocumented in this encounter
--- OUTSIDE RECORDS SUMMARY | 2024-12-01 09:49 | XMS_ITS | Patient Health Record ---
Author Organization [facility] Address [address] [facility] [address] [place] [address] Care Team Providers Care Plate Washer Name Role Phone Carmela Caban Unavailable [phone] Reason For Referral No Information Social History [...] W/U Status Risk Notes Problem Menorrhagia (finding) ([id number]) Menorrhagia, premenopausal (N92.4) Active confirmed Plan Of Treatment No Information Insurance Providers Payer Name Payer Address Payer Phone Subscriber Number Group Number Insured Name Patient Relationship to Insured Coverage Start Date Coverage End Date Brenda GALLEGOS [address] [place] [address] [id number] Tanesha Wall Self - patient is the insured
[2024-12-01 10:24] LABS: Hematocrit 35.6 % (37.0-47.0); Hemoglobin 11.7 g/dL (12.2-16.2); Immature Granulocytes % 0.5 %; Mean Corpuscular HGB Conc 32.9 g/dL (31.8-35.4); Mean Corpuscular Hemoglobin 29.8 pg (27.0-31.2); Mean Corpuscular Volume 90.8 fl (81-99); Nucleated Red Blood Cells % 0 %; Platelet Count 333 K/mm3 (142-424); Red Blood Count 3.92 M/mm3 (4.20-5.40); Red Cell Distribution Width-SD 41.7 fL; White Blood Count 6.6 K/mm3 (4.8-10.8)
[2024-12-01 10:43] LABS: INR 0.97 (0.9-1.1); Prothrombin Time 10.8 seconds (10.1-12.5)
[2024-12-01 11:42] LABS: Albumin Level 3.6 g/dl (3.5-5.0)
[2024-12-01 11:45] LABS: Alanine Aminotransferase 30 U/L (12-78); Alkaline Phosphatase 59 U/L (38-126); Aspartate Amino Transferase 22 U/L (14-36); Bilirubin,Direct 0.0 mg/dl (0.0-0.4); Bilirubin,Indirect 0.5 mg/dL (0.0-0.9); Bilirubin,Total 0.5 mg/dl (0.2-1.3); Bilirubin,Unconjugated 0.5 mg/dL (0.0-1.1); Total Protein,Serum 6.1 g/dl (6.3-8.2)
[2024-12-01 13:16] LABS: C-Reactive Protein 0.9 mg/L (0-4)
[2024-12-02 08:15] LABS: Cytomegalovirus (CMV) Ab, IgG <0.60 U/mL (0.00-0.59); Cytomegalovirus (CMV) Ab, IgM <30.0 AU/mL (0.0-29.9)
== END 2024-12-01 23:59 | disposition home or self-care (01) ==
PROVIDERS: PCP Nurse Practitioner Family; Visit Provider Nurse Practitioner Family
DX: R74.01 Elevation of levels of liver transaminase levels (principal)
CPT/HCPCS: 36415; 80076; 82172; 82247; 82465; 82947; 82977; 83010; 83521; 84450; 84460; 84478; 85025; 85610; 85651; 86140; 86644; 86645